=== PATIENT | female | born 1995 | race Caucasian/White ===

== ENCOUNTER 2021-06-12 13:04 | Emergency (ER) | payer MEDICAID, SELFPAY | END 2021-06-12 13:30 | disposition left against medical advice (07) | LOC: CHSED 13:10 | PROVIDERS: Emergency Provider Emergency Medicine | DX: Z04.9 Encounter for examination and observation for unspecified reason (principal); Z53.8 Procedure and treatment not carried out for other reasons | CPT/HCPCS: 99199 ==

== ENCOUNTER 2021-06-12 14:06 | Emergency (ER) | payer MEDICAID, SELFPAY ==
--- NOTE | 2021-06-12 14:13 | ED.SKABFB ---
HPI - Skin/Abscess/Foreign Bdy General Chief complaint: Skin/Abscess/Foreign Body Stated complaint: SWOLLEN AREA S/P SHOT Time Seen by Provider: 06/12/21 14:13 Source: patient and RN notes reviewed History of Present Illness HPI narrative: Patient is a 26-year-old female who presents the urgent care with complaints of swelling to the injection site of the left buttocks. Patient states that her sister gave her her Depo shot approximately 2 weeks ago and it has begun to swell and cause her a lot of pain. Patient states she followed up with her DOOR CLAMPER who stated she needed to speak to her primary care. Patient states that her sister has been giving her her injections for some time and she has never had any issues. Patient has used warm compress and taken Tylenol for the pain without any relief. Patient's primary care doctor told her to go to the urgent care for evaluation . Patient denies of any fevers, chills, nausea, vomiting. No other acute complaints. No distress noted. Patient plan of care. Some parts of this dictation were generated by voice recognition software and may contain typographical and/or grammatical inaccuracies. Related Data Home Medications Medication Instructions Recorded Confirmed zonisamide PO 06/12/21 Allergies Allergy/AdvReac Type Severity Reaction Status Date / Time No Known Allergies Allergy Mild Verified 12/15/10 22:37 Review of Systems Review of Systems: CONSTITUTIONAL: Denies fever, chills, or sweats. EYES: Denies visual changes, redness, or discharge. ENT: Denies rhinorrhea, congestion, sore throat, or otalgia. CARDIOVASCULAR: Denies chest pain, palpitations, or edema. RESPIRATORY: Denies cough or dyspnea. GASTROINTESTINAL: Denies abdominal pain, nausea, vomiting, or diarrhea. GENITOURINARY: Denies dysuria or hematuria. SKIN: Reports of swelling and pain to the left buttocks from a Depo injection MUSCULOSKELETAL: Denies back pain, joint pain, or myalgia. NEUROLOGIC: Denies headache, numbness, or weakness. All other systems reviewed are negative, except as documented in HPI. PMFSH Comments At the time of my signature, I reviewed and agree with the nursing past medical, surgical, social, and family history. There is no relevant family history pertinent to the patient complaint. Exam Narrative: GENERAL: This is a well-nourished, well-developed patient, in no apparent distress. HEAD: normocephalic, atraumatic. EYES: PERRL. Sclera clear/white. Vision is grossly intact. EARS: External ears normal NOSE: External nose normal with no obvious nasal discharge, nares without redness, no rhinorrhea. THROAT: Mucous membranes moist NECK: Neck supple CARDIOVASCULAR: Regular rate and rhythm without murmurs, gallops, or rubs. RESPIRATORY: Clear to auscultation. Breath sounds equal bilaterally. No wheezes, rales, or rhonchi. GASTROINTESTINAL: Abdomen soft, non-tender, nondistended. Bowel sounds are active. No hepato-splenomegaly, or palpable masses. No guarding. SKIN: 4 x 4 centimeter firm deep, tender, nonerythemic area to the left buttocks from injection. warm, intact with no suspicious lesions or rash, good texture and turgor. NEURO: awake, alert, and oriented to person, place and time. There were no obvious focal neurologic abnormalities. EXTREMITIES: No clubbing, cyanosis, or edema. Course Vital Signs Vital signs: Vital Signs Temperature 98.3 F 06/12/21 14:15 Pulse Rate 101 H 06/12/21 14:15 Respiratory Rate 16 06/12/21 14:15 Blood Pressure 124/81 06/12/21 14:15 Pulse Oximetry 100 06/12/21 14:15 Temperature 98.3 F 06/12/21 14:15 Pulse Rate 101 H 06/12/21 14:15 Respiratory Rate 16 06/12/21 14:15 Blood Pressure 124/81 06/12/21 14:15 Pulse Oximetry 100 06/12/21 14:15 Reviewed MDM - Skin/Abscess/Foreign Bdy MDM Narrative Medical decision making narrative: Advised the patient to continue warm compress, Tylenol, ibuprofen as needed for pain and comfort. May also u
[2021-06-12 14:15] VITALS: BP 124/81; PULSE 101; RESP 16; TEMP 36.8; O2SAT 100
== END 2021-06-12 14:40 | disposition home or self-care (01) ==
PROVIDERS: Emergency Provider Nurse Practitioner Family
DX: R22.9 Localized swelling, mass and lump, unspecified (principal); T50.905A Adverse effect of unspecified drugs, medicaments and biological substances, initial encounter
CPT/HCPCS: 99203; G0463

== ENCOUNTER 2022-06-13 12:06 | Emergency (ER) | payer MEDICAID, SELFPAY ==
[2022-06-13] VITALS (13 sets, daily range): BP systolic 92–126; BP diastolic 61–92; PULSE 65–106; RESP 15–21; TEMP 37.5; O2SAT 97–99
--- NOTE | ~2022-06-13 | CT_ITS ---
EXAMINATION: CT brain wo con DATE: 06/13/2022 13:06 INDICATION: 5 to 6 mm long seizure today TECHNIQUE: Computed tomography (CT) of the head was performed without intravenous contrast. The mA wa s adjusted according to patient size. Iterative reconstruction technique was employed. Exam dose: 52 9.67 mGy-cm total exam DLP. COMPARISON: November 11, 2013 MRI brain/brainstem 04/20/2011 CT brain FINDINGS: The cerebellar tonsils extend through the foramen magnum suggesting possible Arnold-Chiari 1 malformation. No intracranial mass lesion or hemorrhage or cerebrovascular accident. Normal hayes-wh ite matter differentiation. Normal ventricular size. No subdural or epidural hematoma. No fracture or bone destruction of the cranial vault. Included mastoid air cells and paranasal sinuse s are clear. IMPRESSION: Cerebellar tonsils extend to the foramen magnum suggesting Arnold-Chiari 1 malformation No acute intracranial finding Reviewed, dictated and finalized at [facility]. Reviewed, dictated and finalized at [facility]. ROOM ATTENDANT IMPRESSION: Cerebellar tonsils extend to the foramen magnum suggesting Arnold- Chiari 1 malformation No acute intracranial finding
--- NOTE | ~2022-06-13 | XR_ITS ---
XR chest 1V portable DATE: 06/13/2022 12:53 INDICATION: Shortness of breath TECHNIQUE: Portable AP chest on 06/13/2022 at 1300 hours COMPARISON: None FINDINGS: Bilateral hyperinflation. No pulmonary infiltrate or consolidation, pleural effusion or pul monary vascular congestion or pneumothorax. Normal heart size. No hilar or mediastinal enlargement. IMPRESSION: Bilateral hyperinflation; otherwise no active cardiopulmonary disease Reviewed, dictated and finalized at location [facility]. E ACTOR IMPRESSION: Bilateral hyperinflation; otherwise no active cardiopulmonary disea se
--- NOTE | 2022-06-13 12:31 | ECG_ITS ---
Measurements Intervals [place] Rate: 80 P: 76 ID: [id number] QRS: 78 QRSD: 79 T: 72 QT: 352 QTc: 408 Interpretive Statements SINUS RHYTHM WITH SINUS ARRHYTHMIA BASELINE ARTIFACT- AVR, AVL, AVF NORMAL ECG NO PREVIOUS ECG AVAILABLE FOR COMPARISON Electronically Signed On 06-13-2022 13:06:36 TOBACCO WETTER by Mark Marie D.O.
[2022-06-13 12:43] LABS: Basophils Absolute Auto 0.02 K/mm3 (0.00-0.10); Basophils Percent Auto 0.4 % (0.0-1.0); Eosinophils Absolute Auto 0.01 K/mm3 (0.02-0.50); Eosinophils Percent Auto 0.2 % (1.0-6.0); Hemoglobin 13.7 g/dL (12.0-15.0); Immature Granulocyte Absolute 0.02 K/mm3 (0.00-0.00); Immature Granulocyte Percent A 0.4 % (0.0-0.0); Lymphocytes Absolute Auto 1.05 K/mm3 (1.10-4.50); Mean Corpuscular HGB Conc 33.4 g/dL (32.0-36.0); Mean Corpuscular Hemoglobin 29.4 pg (27.0-31.0); Mean Platelet Volume 10.6 fl (9.2-11.8); Monocytes Absolute Auto 0.51 K/mm3 (0.10-0.90); Monocytes Percent Auto 10.7 % (2.0-11.0); Neutrophils Absolute Auto 3.2 K/mm3 (1.7-7.2); Neutrophils Percent Auto 66.3 % (50.0-70.0); Platelet Count Result 191 K/mm3 (150-420); Red Blood Count 4.66 M/mm3 (4.20-5.40); Red Cell Distribution Width 11.7 % (11.6-14.4); White Blood Count 4.8 K/mm3 (4.8-10.8)
[2022-06-13 12:51] LABS: Appearance Urine Clear (Clear); Bilirubin Urine Negative (Negative); Blood Urine 1+ (Negative); Glucose Urine UA Negative (Negative); Ketones Urine Negative (Negative); Leukocyte Esterase Ur Trace (Negative); Nitrate Urine Negative (Negative); Protein Urine Negative (Negative); Specific Grav Ur 1.015 (1.010-1.020); Urobilinogen Urine 0.2 mg/dL (0.2-1.0)
[2022-06-13] MEDS: PHENYTOIN SODIUM INJ (*BKC) 1,000 MG in SODIUM CHLORIDE 0.9% IV 100 ML 360 MG IVPB (12:54)
[2022-06-13 12:58] LABS: Amphetamine Screen Urine Negative (Negative); Barbiturate Screen Urine Negative (Negative); Benzodiazepines Screen Urine Negative (Negative); Cannabinoid Screen Urine Negative (Negative); Cocaine Screen Urine Negative (Negative); Methadone Screen Urine Negative (Negative); Opiate Screen Urine Negative (Negative); Phencyclidine Screen Urine Negative (Negative)
[2022-06-13 12:59] LABS: Add Urine Microscopic? YES; Bacteria Urine Trace /hpf; Color Urine Light Yellow (Yellow); RBC Urine 0-2 /hpf (0-2); Squamous Epithelial Cell Urine Few /hpf (Few); WBC Urine 0-3 /hpf (0-3)
[2022-06-13 13:01] LABS: Alanine Aminotransferase 15 U/L (14-59); Albumin Level 3.5 g/dL (3.4-5.0); Alkaline Phosphatase 71 U/L (46-116); Anion Gap 6 mmol/L (8-16); Aspartate Amino Transferase 14 U/L (15-37); Bilirubin,Total 0.4 mg/dL (0.00-1.00); Blood Urea Nitrogen 7 mg/dL (7-18); Calcium 8.5 mg/dL (8.5-10.1); Carbon Dioxide 27 mmol/L (21-32); Chloride 108 mmol/L (98-108); Estimated Glomerular Filt Rate > 60; Glucose 97 mg/dL (70-99); Osmolality Calculated 290 mOsm/kg (285-295); Potassium 3.5 mmol/L (3.5-5.1); Sodium 141 mmol/L (136-145); Total Protein 6.8 g/dL (6.4-8.2)
[2022-06-13 13:03] LABS: Ethanol < 3 mg/dL (0-6); SPREG INTERNAL CONTROL Positive; Serum Qual hCG Negative
[2022-06-13] MEDS: PHENYTOIN 50 MG CHEW 700 MG PO (13:40)
--- NOTE | 2022-06-13 13:55 | ED.SEIZURE ---
HPI - Seizure General Chief Complaint: Seizure Stated Complaint: Ambulance Time Seen by Provider: 06/13/22 12:09 Source: patient, family, EMS and RN notes reviewed Mode of arrival: ambulatory Limitations: no limitations History of Present Illness complaint: seizure Onset (ago): hour(s) (1) Description of Episode: tonic-clonic movement and post-event confusion Duration of episode: 5 -: minutes(s) Witnessed: Yes - by Other Trauma: No Seizure History: Yes Place: home Possible Precipitating Event: none Associated symptoms: denies other symptoms Treatments prior to arrival: none Related Data Home Medications Medication Instructions Recorded Confirmed zonisamide 100 mg capsule 300 mg PO HS 06/13/22 06/13/22 Allergies Allergy/AdvReac Type Severity Reaction Status Date / Time levetiracetam [From Kera] Allergy Other Verified 06/13/22 12:15 Review of Systems Review of Systems: All systems reviewed & are unremarkable except as noted in HPI and below Constitutional: Constitutional: Reports no additional constitutional complaints Eyes: Eyes: Reports no additional eye complaints ENT: Reports system reviewed and no additional complaints, except as documented Cardiovascular: Cardiovascular: Reports no additional cardiovascular complaints Respiratory: Respiratory: Reports no additional respiratory complaints Gastrointestinal: Gastrointestinal: Reports no additional gastrointestinal complaints Genitourinary: Genitourinary: Reports no additional female genitourinary complaints Musculoskeletal: Musculoskeletal: Reports no additional musculoskeletal complaints Integumentary/Breasts: Skin/Breast: Reports system reviewed and no additional complaints, except as docu Neurologic: Reports system reviewed and no additional complaints, except as documented Comments: seizure epsode. Psychiatric: Psychiatric: Reports no additional psychiatric complaints Endocrine: Endocrine: Reports no additional endocrine complaints Hematologic/Lymphatic: Hematologic/Lymphatic: Reports no additional hematologic/lymphatic complaints Allergic/Immunologic: Allergic/Immunologic: Reports no additional allergic/immunologic complaints PMFSH Past Medical History Medical History Seizure Exam Const: General: healthy appearing, no acute distress and well nourished Nutritional Appearance: well nourished Orientation/consciousness: patient oriented x3 Limitations: no limitations HENMT: Head: normal to inspection Ears: external ears normal, TM's normal bilaterally and EAC's normal Face/Nose/Sinus: Normal external nose present, Normal nares present, normal facial exam and sinuses nontender Face and sinus: normal facial exam and sinuses nontender Mouth: Yes Normal oral and palatal mucosa present and Yes moist mucous membranes Teeth and gingiva: dentition normal Throat: posterior oropharynx normal Eyes: Conjunctivae: conjunctivae normal Pupils: Equal, round and reactive pupils present EOM: EOMs intact bilaterally Neck: Neck: normal visual inspection, no lymphadenopathy and no meningeal signs Chest: Chest palpation & inspection: normal inspection of the chest Resp: Effort & Inspection: normal respiratory effort Auscultation: clear to auscultation bilaterally Cardio: Rate: regular rate Rhythm: regular rhythm GI: GI Palp: Yes Soft to palpation and No Tenderness to palpation present (GI) Auscultation: normal bowel sounds : General: Yes bladder normal to palpation and Yes no CVA tenderness Bimanual exam- vagina & uterus: bladder normal to palpation Back/Spine/Pelvis: Back: no CVA tenderness Skin: General skin exam: normal color Rashes: no rashes Wounds: no wounds Neuro: General: patient oriented x3, moves all extremities, no meningeal signs, no focal motor deficits and CN's II-XI intact bilaterally Cranial nerves: Yes Equal, round and reactive pupils present and Yes Nystag
[2022-06-13] MEDS: PHENYTOIN 50 MG CHEW 300 MG PO (15:12)
== END 2022-06-13 15:29 | disposition home or self-care (01) ==
PROVIDERS: Emergency Provider Emergency Medicine
DX: R56.9 Unspecified convulsions (principal)
CPT/HCPCS: 36415; 70450; 71045; 80053; 80307; 81001; 84703; 85025; 93005; 96374; 99284; A9270; J1165

== ENCOUNTER 2022-08-16 16:52 | Emergency (ER) | payer MEDICAID, SELFPAY ==
--- NOTE | ~2022-08-16 | CT_ITS ---
EXAMINATION: CT brain wo con DATE: 08/16/2022 17:45 INDICATION: seizure, SARMIENTO . TECHNIQUE: Computed tomography (CT) of the head was performed without intravenous contrast. The mA wa s adjusted according to patient size. Iterative reconstruction technique was employed. The dose-lengt h product was 681.00 mGy-cm. COMPARISON: 06/13/2022. FINDINGS: No acute intracranial hemorrhage or extra-axial fluid collection. No hydrocephalus, mass, or herniation. Stable possible Arnold-Chiari 1 malformation. No acute ischemic infarct. Unremarkable dural venous sinus attenuation. No acute osseous abnormality. Right maxillary retention cyst or polyp left maxillary mucosal thickening. The remaining aerated spac es are clear. IMPRESSION: No acute intracranial process. Reviewed, dictated and finalized at location [facility]. [employer]ICIAN SUPER[employer]
[2022-08-16 16:55] VITALS: BP 122/85; PULSE 74; RESP 16; TEMP 37.3; O2SAT 100
--- NOTE | 2022-08-16 17:11 | ECG_ITS ---
Measurements Intervals [place] Rate: 66 P: 74 [place]: 191 QRS: 62 QRSD: 79 T: 55 QT: 372 QTc: 392 Interpretive Statements SINUS RHYTHM RSR' IN V1 OR V2, PROBABLY NORMAL VARIANT LOW QRS VOLTAGE IN PRECORDIAL LEADS BORDERLINE ECG COMPARED TO ECG 06/13/2022 12:53:16 NO SIGNIFICANT CHANGES Electronically Signed On 08-16-2022 17:34:22 CLINICAL ADMINISTRATOR by Mark Marie D.O.
[2022-08-16 17:12] VITALS: BP 122/85; PULSE 77; RESP 16; TEMP 37.3; O2SAT 100
[2022-08-16] MEDS: SODIUM CHLORIDE 0.9% IV 500 ML 999 ML IV CONT (17:20)
--- NOTE | 2022-08-16 18:06 | ED.SEIZURE ---
HPI - Seizure General Chief Complaint: Seizure Stated Complaint: amb Time Seen by Provider: 08/16/22 16:57 Source: patient Mode of arrival: EMS Limitations: no limitations History of Present Illness HPI Narrative: This is a 27-year-old female with a history of seizures and apparently had a tonic-clonic seizure witnessed lasting [id number] with no tongue biting no bowel or bladder dysfunction, patient currently not postictal no headache no nausea vomiting does have some muscle aches. Currently no fever chills no chest pain no shortness of breath no abdominal pain no flank pain no dysuria. Patient has this history of seizures but was seeing a neurologist and unable to afford the medication and discontinued her medication has currently no insurance and has not had a recent follow-up. complaint: seizure Onset (ago): minute(s) Duration of episode: 1 -: minutes(s) Witnessed: Yes - by Bystander Trauma: No Seizure History: Yes Place: outdoors Possible Precipitating Event: none Associated symptoms: denies other symptoms Treatments prior to arrival: none Related Data Allergies Allergy/AdvReac Type Severity Reaction Status Date / Time levetiracetam [From Keppra] Allergy Other Verified 06/13/22 12:15 lorazepam [From Ativan] Allergy Chest Pain Verified 08/16/22 17:17 Review of Systems Review of Systems: All systems reviewed & are unremarkable except as noted in HPI and below PMFSH Past Medical History Medical History Seizure Exam Const: General: healthy appearing Nutritional Appearance: well nourished Orientation/consciousness: patient oriented x3 Limitations: no limitations HENMT: Head: normal to inspection Ears: external ears normal Face/Nose/Sinus: Normal external nose present Face and sinus: normal facial exam Mouth: Yes Normal oral and palatal mucosa present Throat: posterior oropharynx normal Eyes: Conjunctivae: conjunctivae normal EOM: EOMs intact bilaterally Direct Ophthalmoscopy: no photophobia Neck: Neck: normal visual inspection, no lymphadenopathy and no meningeal signs Chest: Chest palpation & inspection: normal inspection of the chest and abnormal inspection of the chest Resp: Effort & Inspection: normal respiratory effort Auscultation: clear to auscultation bilaterally Cardio: Rate: regular rate Rhythm: regular rhythm GI: GI Palp: Yes Soft to palpation Auscultation: normal bowel sounds : General: Yes bladder normal to palpation Urinary Catheter: Urinary Catheter: patent and draining Back/Spine/Pelvis: Back: no CVA tenderness Skin: General skin exam: normal color Rashes: no rashes Wounds: no wounds Neuro: General: patient oriented x3, moves all extremities, no meningeal signs and no focal motor deficits Cranial nerves: Yes Nystagmus not present Extrem: General: normal to inspection and no clubbing, cyanosis or edema Psych: Appearance: grossly normal and well kempt Mental Status: mental status grossly normal Course Course Emergency Course: CT scan reviewed with patient and no acute findings patient received IV fluids labs and EKG were reviewed with patient. Currently no seizure activity. Vital Signs Vital signs: Vital Signs Temperature 37.3 C 08/16/22 16:55 Pulse Rate 74 08/16/22 16:55 Respiratory Rate 16 08/16/22 16:55 Blood Pressure 122/85 08/16/22 16:55 Pulse Oximetry 100 08/16/22 16:55 Oxygen Delivery Room Air 08/16/22 16:55 Temperature 37.3 C 08/16/22 17:12 Pulse Rate 77 08/16/22 17:12 Respiratory Rate 16 08/16/22 17:12 Blood Pressure 122/85 08/16/22 17:12 Pulse Oximetry 100 08/16/22 17:12 Oxygen Delivery Room Air 08/16/22 17:12 Critical Care Time Critical Care Time Critical Care Time: No Discharge Plan Discharge Clinical Impression: Seizure, Acute hypokalemia Patient Disposition: Home, Self-Care Condition: Stable Instructions: Anti
[2022-08-16 18:11] LABS: Basophils Absolute Auto 0.02 K/mm3 (0.00-0.10); Basophils Percent Auto 0.4 % (0.0-1.0); Eosinophils Absolute Auto 0.03 K/mm3 (0.02-0.50); Eosinophils Percent Auto 0.7 % (1.0-6.0); Hematocrit 39.3 % (35.0-49.0); Immature Granulocyte Absolute 0.02 K/mm3 (0.00-0.00); Immature Granulocyte Percent A 0.4 % (0.0-0.0); Lymphocytes Absolute Auto 1.49 K/mm3 (1.10-4.50); Lymphocytes Percent Auto 32.7 % (18.0-42.0); Mean Corpuscular HGB Conc 33.1 g/dL (32.0-36.0); Mean Corpuscular Hemoglobin 28.6 pg (27.0-31.0); Mean Corpuscular Volume 86.6 fL (78.0-102.0); Monocytes Absolute Auto 0.34 K/mm3 (0.10-0.90); Monocytes Percent Auto 7.5 % (2.0-11.0); Neutrophils Absolute Auto 2.7 K/mm3 (1.7-7.2); Neutrophils Percent Auto 58.3 % (50.0-70.0); Platelet Count Result 186 K/mm3 (150-420); Red Blood Count 4.54 M/mm3 (4.20-5.40); Red Cell Distribution Width 12.4 % (11.6-14.4); White Blood Count 4.6 K/mm3 (4.8-10.8)
[2022-08-16 18:22] LABS: Add Urine Microscopic? YES; Appearance Urine Clear (Clear); Bilirubin Urine Negative (Negative); Blood Urine 1+ (Negative); Color Urine Light Yellow (Yellow); Glucose Urine UA Negative (Negative); Ketones Urine Negative (Negative); Leukocyte Esterase Ur Negative LEU/UL (Negative); Nitrate Urine Negative (Negative); Protein Urine Negative (Negative); Specific Grav Ur 1.015 (1.010-1.020)
[2022-08-16 18:25] LABS: Alanine Aminotransferase 15 U/L (14-59); Albumin Level 3.6 g/dL (3.4-5.0); Alkaline Phosphatase 81 U/L (46-116); Anion Gap 9 mmol/L (8-16); Aspartate Amino Transferase 12 U/L (15-37); Bilirubin,Total 0.5 mg/dL (0.00-1.00); Blood Urea Nitrogen 7 mg/dL (7-18); Carbon Dioxide 24 mmol/L (21-32); Chloride 107 mmol/L (98-108); Creatine Kinase 33 U/L (26-192); Estimated CRCL calculation 96 ml/min; Estimated Glomerular Filt Rate > 60; Glucose 83 mg/dL (70-99); Osmolality Calculated 287 mOsm/kg (285-295); Potassium 3.3 mmol/L (3.5-5.1); Sodium 140 mmol/L (136-145)
[2022-08-16 18:28] LABS: Amorphous Sediment Urine Few; Bacteria Urine Trace /hpf; Mucus Urine Heavy /lpf; RBC Urine 0-2 /hpf (0-2); Squamous Epithelial Cell Urine Many /hpf (Few)
[2022-08-16 18:36] LABS: Amphetamine Screen Urine Negative (Negative); Barbiturate Screen Urine Negative (Negative); Benzodiazepines Screen Urine Negative (Negative); Cannabinoid Screen Urine Negative (Negative); Cocaine Screen Urine Negative (Negative); Methadone Screen Urine Negative (Negative); Opiate Screen Urine Negative (Negative); Phencyclidine Screen Urine Negative (Negative)
[2022-08-16] MEDS: POTASSIUM BICARBONATE 25 MEQ TABEF 50 MEQ PO (18:40)
[2022-08-16 18:51] VITALS: BP 113/79; PULSE 73; RESP 16; TEMP 36.2; O2SAT 99
== END 2022-08-16 18:53 | disposition home or self-care (01) ==
PROVIDERS: Emergency Provider Emergency Medicine
DX: R56.9 Unspecified convulsions (principal); E87.6 Hypokalemia
CPT/HCPCS: 36415; 70450; 80053; 80307; 81001; 82550; 85025; 93005; 96360; 99284; A9270; J7040

== ENCOUNTER 2024-06-07 21:44 | Emergency (ER) | payer BC, SELFPAY ==
[2024-06-07 21:44] VITALS: BP 124/81; PULSE 92; RESP 18; TEMP 37; O2SAT 98
--- NOTE | 2024-06-07 21:45 | ECG_ITS ---
Test Date: 2024-06-07 22:11:44 Measurements Intervals [place] Rate: 81 P: 68 [place]: 232 QRS: 75 QRSD: 103 T: 76 QT: 364 QTc: 423 Interpretive Statements SINUS RHYTHM WITH FIRST DEGREE AV BLOCK INCOMPLETE RIGHT BUNDLE BRANCH BLOCK BASELINE ARTIFACT- I, II, III, AVR, AVL, AVF ABNORMAL ECG No previous ECG available for comparison Electronically Signed On 06-08-2024 06:32:23 SAMPLE STITCHER by Mark Marie D.O.
--- NOTE | 2024-06-07 21:52 | ED_ITS ---
HPI - Seizure General Chief Complaint: Seizure Stated Complaint: seizure Time Seen by Provider: 06/07/24 21:45 Source: patient Mode of arrival: ambulatory Limitations: no limitations History of Present Illness HPI Narrative: Patient is a 29-year-old female with significant past medical history that presents today for a seizure. Patient states she was at home with her kids and her kids said that she started having a seizure for about 20 seconds. She did have a postictal state and did not remember having the seizure. She has a history of seizures she says she has about 3 a for a month. She does see a neur ologist and she has a MRI scheduled for this . She does take seizure medications currently and they have been changed around the dosages and adding an different medications as well. MD complaint: seizure Onset (ago): minute(s) Description of Episode: tonic-clonic movement Duration of episode: 20 -: second(s) Witnessed: Yes - by Bystander Seizure History: Yes Place: home Possible Precipitating Event: none Associated symptoms: denies other symptoms Treatments prior to arrival: none Are you currently using a commercial designer's license ([employer]) as part of your employment, either self-employed or otherwise?: No Related Data Allergies Allergy/AdvReac Type Severity Reaction Status Date / Time levetiracetam [From Keppra] Allergy Other Verified 06/13/22 12:15 lorazepam [From Ativan] Allergy Chest Pain Verified 08/16/22 17:17 Review of Systems Review of Systems: All systems reviewed & are unremarkable except as noted in HPI and below Constitutional: Constitutional: Reports as per HPI Eyes: Eyes: Reports no additional eye complaints ENT: Reports system reviewed and no additional complaints, except as documented Cardiovascular: Cardiovascular: Reports no additional cardiovascular complaints Respiratory: Respiratory: Reports no additional respiratory complaints Gastrointestinal: Gastrointestinal: Reports no additional gastrointestinal complaints Genitourinary: Genitourinary: Reports no additional female genitourinary complaints Musculoskeletal: Musculoskeletal: Reports no additional musculoskeletal complaints Integumentary/Breasts: Skin/Breast: Reports system reviewed and no additional complaints, except as docu Neurologic: Reports system reviewed and no additional complaints, except as documented Psychiatric: Psychiatric: Reports no additional psychiatric complaints Endocrine: Endocrine: Reports no additional endocrine complaints Hematologic/Lymphatic: Hematologic/Lymphatic: Reports no additional hematologic/lymphatic complaints Allergic/Immunologic: Allergic/Immunologic: Reports no additional allergic/immunologic complaints [facility] Past Medical History Medical History Seizure Exam Const: General: healthy appearing, no acute distress and alert HENMT: Head: normal to inspection Ears: external ears normal Face/Nose/Sinus: Normal external nose present Eyes: Conjunctivae: conjunctivae normal Pupils: Equal, round and reactive pupils present Neck: Neck: normal visual inspection Chest: Chest palpation & inspection: normal inspection of the chest Resp: Effort & Inspection: normal respiratory effort Auscultation: clear to auscultation bilaterally Cardio: Rate: regular rate Rhythm: regular rhythm GI: GI Palp: Yes Soft to palpation Back/Spine/Pelvis: Back: no CVA tenderness Skin: General skin exam: normal color Rashes: no rashes Wounds: no wounds Neuro: General: patient oriented x3, moves all extremities and no meningeal signs Extrem: General: normal to inspection Psych: Appearance: grossly normal and well kempt Course Vital Signs Vital signs: Vital Signs Temperature 98.6 F 06/07/24 21:44 Pulse Rate 92 06/07/24 21:44 Respiratory Rate 18 06/07/24 21:44 Blood Pressure 124/81 06/07/24 21:44 Pulse Oximetry 98 06/07/24 21:44 Oxygen Delivery Room Air 06/07/24 21:44 Temperature 98.6 F 06/07/24 21:44 Pulse Rate 92 06/07/24 21:44 Respiratory Rate 18 06/07/24 21:44 Blood Pressure 124/81 06/07/24 21:44 Pulse Oximetry 98 06/07/24 21:44 Oxygen Delivery Room Air 06/07/24 21:44 MDM - Seizure MDM Narrative Medical decision making narrative: Patient has a history of multiple seizures she says she has about 3 or 4 months. She is on seizure medication for this but still is having seizures. This time it lasted around 20 seconds. She did have a postictal state. Her children called 911 and when she came in she was perfectly coherent alert oriented x3. She did not have any slow mentation. She has old conversation. I gave her 1 mg IV Ativan to ensure she has not have another the seizure. Will do full blood panel as well. As long as her blood workup are normal and she is seizure-free will watch her and then she can be discharged home safely. She has a MRI scheduled instructed her to keep his MRI and her follow-up with her neurologist. Differential Diagnosis Differential diagnosis: Likely epileptic seizure Medical Records Attestation: I reviewed the patient's medical records. Lab Data Attestation: I reviewed the patient's lab results. 06/07/24 21:45 06/07/24 21:45 Labs: Lab Results 06/07/24 Range/Units 21:45 WBC 5.2 (4.8-10.8) K/mm3 RBC 4.58 (4.20-5.40) M/mm3 Hgb 12.6 (12.0-15.0) g/dL Hct 38.1 (35.0-49.0) % MCV 83.2 (78.0-102.0) fL MCH 27.5 (27.0-31.0) pg MCHC 33.1 (32-36) g/dL RDW 13.6 (11.6-14.4) % Plt Count 229 (150-420) K/mm3 MPV 10.8 (9.2-11.8) fl Immature Gran % (Auto) 0.2 H (0.0-0.0) % Neut % (Auto) 58.7 (50.0-70.0) % Lymph % (Auto) 29.3 (18.0-42.0) % [place] % (Auto) 10.0 (2.0-11.0) % Eos % (Auto) 1.2 (1.0-6.0) % Baso % (Auto) 0.6 (0.0-1.0) % Lymph # (Auto) 1.52 (1.10-4.50) K/mm3 [place] # (Auto) 0.52 (0.10-0.90) K/mm3 Eos # (Auto) 0.06 (0.02-0.50) K/mm3 Baso # (Auto) 0.03 (0.00-0.10) K/mm3 Abs Immat Gran (auto) 0.01 H (0.00-0.00) K/mm3 Absolute Neuts (auto) 3.04 (1.70-7.20) K/mm3 Absolute Nucleated RBC 0.00 (0.00-0.00) K/mm3 Nucleated RBC % 0.0 (0-0.0) % Sodium 140 (136-145) mmol/L Potassium 3.8 (3.5-5.1) mmol/L Chloride 104 (98-108) mmol/L Carbon Dioxide 25 (21-32) mmol/L Anion Gap 11 (4-12) mmol/L BUN 10 (7-18) mg/dL Creatinine 0.74 (0.55-1.02) mg/dL Estim Creat Clear Calc 79 ml/min Estimated GFR > 60 (59 - ) Glucose 106 H (70-99) mg/dL Calculated Osmolality 289 (285-295) mOsm/kg Calcium 9.2 (8.5-10.1) mg/dL Total Bilirubin 0.3 (0.00-1.00) mg/dL AST 17 (15-37) U/L ALT 22 (14-59) U/L Alkaline Phosphatase 57 (46-116) U/L Total Protein 7.0 (6.4-8.2) g/dL Albumin 3.5 (3.4-5.0) g/dL Discharge Plan Discharge Clinical Impression: Seizure Patient Disposition: Home, Self-Care Condition: Stable Instructions: Epilepsy (ED) Prescriptions: No Action phenytoin sodium extended 100 mg capsule 100 mg PO TID Qty: 90 0RF potassium chloride 20 mEq tablet extended release 20 meq PO BID 3 Days Qty: 6 0RF Follow-up/Referrals: UNKNOWN,DOCTOR [Primary Care Provider] - Time of Disposition: 22:40
[2024-06-07 21:55] LABS: Basophils Absolute Auto 0.03 K/mm3 (0.00-0.10); Basophils Percent Auto 0.6 % (0.0-1.0); Eosinophils Absolute Auto 0.06 K/mm3 (0.02-0.50); Eosinophils Percent Auto 1.2 % (1.0-6.0); Hematocrit 38.1 % (35.0-49.0); Hemoglobin 12.6 g/dL (12.0-15.0); Immature Granulocyte Absolute 0.01 K/mm3 (0.00-0.00); Immature Granulocyte Percent A 0.2 % (0.0-0.0); Lymphocytes Absolute Auto 1.52 K/mm3 (1.10-4.50); Lymphocytes Percent Auto 29.3 % (18.0-42.0); Mean Corpuscular HGB Conc 33.1 g/dL (32-36); Mean Corpuscular Hemoglobin 27.5 pg (27.0-31.0); Mean Corpuscular Volume 83.2 fL (78.0-102.0); Mean Platelet Volume 10.8 fl (9.2-11.8); Monocytes Absolute Auto 0.52 K/mm3 (0.10-0.90); Neutrophils Absolute Auto 3.04 K/mm3 (1.70-7.20); Neutrophils Percent Auto 58.7 % (50.0-70.0); Platelet Count Result 229 K/mm3 (150-420); Red Blood Count 4.58 M/mm3 (4.20-5.40); Red Cell Distribution Width 13.6 % (11.6-14.4); White Blood Count 5.2 K/mm3 (4.8-10.8)
[2024-06-07] MEDS: SODIUM CHLORIDE 0.9% IV 1,000 ML 999 ML IV CONT (21:55)
[2024-06-07] MEDS: LORazepam INJ (*CRX) 2 MG/ML VIAL 1 MG IV PUSH (21:56)
[2024-06-07 22:00] VITALS: BP 124/81; PULSE 85; RESP 12; O2SAT 94
--- NOTE | 2024-06-07 22:02 | PC.NURSE ---
EKG IN PROGRESS BY VENANCIO DOYLE
[2024-06-07 22:13] LABS: Alanine Aminotransferase 22 U/L (14-59); Albumin Level 3.5 g/dL (3.4-5.0); Alkaline Phosphatase 57 U/L (46-116); Anion Gap 11 mmol/L (4-12); Aspartate Amino Transferase 17 U/L (15-37); Bilirubin,Total 0.3 mg/dL (0.00-1.00); Blood Urea Nitrogen 10 mg/dL (7-18); Calcium 9.2 mg/dL (8.5-10.1); Carbon Dioxide 25 mmol/L (21-32); Chloride 104 mmol/L (98-108); Estimated CRCL calculation 79 ml/min; Estimated Glomerular Filt Rate > 60; Glucose 106 mg/dL (70-99); Osmolality Calculated 289 mOsm/kg (285-295); Potassium 3.8 mmol/L (3.5-5.1); Sodium 140 mmol/L (136-145)
[2024-06-07 22:15] VITALS: BP 118/67; PULSE 84; RESP 11; O2SAT 99
--- NOTE | 2024-06-07 22:17 | PC.NURSE ---
RESTING ON STRETCHER. WARM BLANKET GIVEN. CURTAINS LEFT OPEN SO THIS RN COULD MONITOR PATIENT. CALL LIGHT IN REACH
--- NOTE | 2024-06-07 22:30 | PC.NURSE ---
PATIENT IS A&O X 3. TALKING ON THE PHONE. CALL LIGHT IN REACH. CURTAINS LEFT OPEN SO PATIENT COULD BE MONITORED
[2024-06-07 22:31] VITALS: BP 95/75; PULSE 83; RESP 14; O2SAT 99
[2024-06-07 22:45] VITALS: BP 114/70; PULSE 85; RESP 17; O2SAT 98
--- NOTE | 2024-06-07 23:10 | PC.NURSE ---
PATIENT HAS CALLED SIGNIFICANT OTHER. WAITING ON HIS ARRIVAL BEFORE REMOVING IV LINE. CALL LIGHT IN REACH
--- NOTE | 2024-06-07 23:44 | PC.NURSE ---
PATIENT REPORTS THAT HER RIDE IS COMING FROM [place]. LIGHTS TURNED OFF FOR PATIENT. SHE WILL REST UNTIL RIDE ARRIVES.
== END 2024-06-08 00:25 | disposition home or self-care (01) ==
PROVIDERS: Emergency Provider Family Medicine
DX: R56.9 Unspecified convulsions (principal)
CPT/HCPCS: 36415; 80053; 85025; 93005; 96361; 96374; 99284; J2060; J7030

== ENCOUNTER 2024-12-11 15:18 | Emergency (ER) | payer BC, SELFPAY ==
--- NOTE | ~2024-12-11 | XR_ITS ---
CHEST RADIOGRAPH, PA AND LATERAL CLINICAL HISTORY: SEIZURE . COMPARISON: 06/13/2022 TECHNIQUE: PA and lateral views of the chest. FINDINGS The cardiomediastinal silhouette is unremarkable. The lungs are clear. Visualized osseous structures and soft tissues are unremarkable. IMPRESSION: No focal infiltrate or effusion. Reviewed, dictated and finalized at location A.
[2024-12-11 15:22] VITALS: BP 108/68; PULSE 104; RESP 16; TEMP 36.7; O2SAT 100
--- OUTSIDE RECORDS SUMMARY | 2024-12-11 15:22 | XMS_ITS | Clinical Summary ---
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 1 spray (5 mg) into 1 nostril; if no response, a second dose of 1 spray (5 mg) into the opposite nostril may be given 10 minutes after the initial dose; do not give a second dose if the patient has trouble breathing or if there is excessive sedation that is uncharacteristic of the patient during a seizure cluster episode; MAX, 2 doses/single episode; do not treat more than 1 episode every 3 days or more than 5 episodes/month 10 Each 5 04/16/20 20 Active Zonisamide (ZONEGRAN) 100 mg capsule Take 3 Capsules (300 mg) by mouth daily at bedtime. 90 Capsule 3 03/07/20 21 Active medroxyPROGESTE Levar (DEPO-PROVERA) 150 mg/mL Suspension Inject 1 mL (150 mg) by intramuscular injection every 90 days. 1 mL 2 12/20/19 22 Active Active Problems Problem Noted Date Diagnosed Date Abscess of buttock, left 06/24/2021 LGSIL on Pap smear of cervix 08/10/2019 Overview (08/10/2019): Colposcopy 07/2019 - biopsies benign Needs rpt pap smear w/ co-testing in 2020. Breast mass in female 08/10/2019 Overview (08/10/2019): Possible fibroadenoma - needs rpt breast US in 3 months (ordered) Seizures 06/21/2019 Tobacco use 06/21/2019 Immunizations Immunization Administration Dates Next Due INFLUENZA VACCINE QUADRIVALENT 6 MOS UP PF IM Family History Medical History Relation Name Comments Healthy Daughter 1 Healthy Daughter 2 Throat Cancer Father Healthy Half-Sister 1 Healthy Half-Sister 2 Diabetes Maternal Grandfather Other Maternal Grandmother C-diff Other Mother mva Cancer Paternal Grandfather Healthy Paternal Grandmother Healthy Sister Healthy Son 1 Healthy Son 2 Breast Cancer Neg Hx Colon Cancer Neg Hx Ovarian Cancer Neg Hx Relation Name Status Comments Daughter 1 Alive Daughter 2 Alive Father Half-Sister 1 Alive Half-Sister 2 Alive Maternal Grandfather Maternal Grandmother Mother Paternal Grandfather Paternal Grandmother Alive Sister Alive Son 1 Alive Son 2 Alive Social History Tobacco Use Types Packs/Day Years Used Date Smoking Tobacco: Every Day Cigarettes 1 12 Smokeless Tobacco: Never Tobacco Cessation:Ready to Q uit: No; Counseling Given: Yes Alcohol Use Standard Drinks/Week Comments Not Currently 0 (1 standard drink = 0.6 oz pur e alcohol) Comments No Sex and Gender Information Value Date Recorded Sex Assigned at Not on file Legal Sex Female 10:55 AM CDT Gender Identity Not on file Sexual Orientation Not on file Last Filed Vital Signs Vital Sign Reading Time Taken Comments Blood Pressure 114/86 02/13/2022 8:56 AM CDT Pulse 106 02/13/2022 8:56 AM CDT Temperature 36 C (96.8 F) 02/13/2022 8:56 AM CDT Respiratory Rate 16 02/13/2022 8:56 AM CDT Oxygen Saturation 94% 02/13/2022 8:56 AM CDT Inhaled Oxygen Concentration - - Weight 60.8 kg (134 lb) 02/13/2022 8:56 AM CDT Height 172.7 cm (5' 8 ) 02/13/2022 8:56 AM CDT Body Mass Index 20.37 02/13/2022 8:56 AM CDT Plan of Treatment Health Maintenance Due Date Last Done Comments DTAP/TDAP/TD VACCINES (1 - Tdap) 2012 HEPATITIS B VACCINES (1 of 3 - 19+ 3-dose series) 2012 PAP SMEAR 10/10/2023 10/09/2020, 10/09/2020, 06/21/2019 INFLUENZA VACCINE (#1) 2024 , 07/01/2017 CERVICAL CANCER SCREENING 10/09/2025 HPV/Cotest (21-29) 10/09/2025 10/09/2020 HPV/Cotest (30-65) 10/09/2025 10/09/2020 HPV VACCINES Aged Out No longer eligi ble based on patient's age to complete this topic Procedures Procedure Name Priority Date/Time Associated Diagnosis Comments CERV/VAG CYTO SCREEN PAP RLFX HPV Routine 10/09/2020 12:00 AM CDT CERV/VAG CYTO AGE BASED SCREEN PAP Routine 10/09/2020 12:00 AM CDT History of abnormal cervical Pap smear from Last 3 Months or Most Recently Relevant to Health Maintenance Results * CERV/VAG CYTO SCREEN PAP RLFX HPV (10/09/2020 12:00 AM CDT) CLINICAL INFORMATION [facility] Comment:Routine exam LAST MENSTRUAL PERIOD [facility] Comment:INFORMATION NOT PROV IDED PREV PAP: [facility] Comment:INFORMATION NOT PROV IDED PREV BX: [facility] Comment:INFORMATION NOT PROV IDED SOURCE [facility] Comment:Endocervix ADEQUACY: [facility] Comment: Satisfactory for evaluation. Endocervical/transformation zone component absent. Age and/or menstrual status not provided PAP INTERP [facility] Comment:Negative for intraep ithelial lesion or malignancy. COMMENT [facility] Comment: This Pap test has been evaluated with computer assisted technology. UTILITY HAND: [facility] Comment: BEF, CT(ASCP) CT screening location: [place] [address] [place] [address] QUEST RESULT [facility] Comment: Component Name: COMMENT EXPLANATORY NOTE: The Pap is a screening test for cervical cancer. It is not a diagnostic test and is subject to false negative and false positive results. It is most reliable when a satisfactory sample, regularly obtained, is submitted with relevant clinical findings and history, and when the Pap result is evaluated along with historic and current clinical information. Test Performed at: [facility] [id number] [place] [address] [employer] [facility] 10/09/2020 Lela Cr MD PATHOLOGY/CYTOLOGY ORDJermaine BARNES Final Result Performing Organization Address City/[facility] Co de Phone Number [facility] [address] [place] [address] * CERV/VAG CYTO AGE BASED SCREEN PAP (10/09/2020 12:00 AM CDT) COMMENT (PAP): [facility] Comment: This order for age-based cervical cancer and STI screening follows ACOG guidelines(PB 168, 140, DPF212). See individual assays for performing site location. Test [facility]formed at: [facility] [address] [place] [address] [facility] [employer] [facility] Genital SWAB OF ENDOCERVIX / Unknown 10/09/2020 Lela Cr MD PATHOLOGY/CYTOLOGY ORDJermaine BARNES Final Result Performing Organization Address City/[facility] Co de Phone Number [facility] [address] [place] [address] from Last 3 Months or Most Recently Relevant to Health Maintenance Insurance [facility] [employer] MEDICAID RX INFOCROSSING Medicaid Advance Directives For more information, please contact: [phone] * Full Code (Latest Code Status on File) Date Activated Date Inactivated Comments 06/23/2021 11:03 PM 06/25/2021 8:01 PM
--- OUTSIDE RECORDS SUMMARY | 2024-12-11 15:22 | XMS_ITS | Continuity of Care Document ---
Author Organization [facility] Address [address] [place] [address] Phone Care Team Providers Care Senior Vice President & General Counsel Name Role Phone Unavailable Unavailable Unavailable Advance Directives Directive Yes / No Effective Date File Name No Information Encounters Encounter Description Practice Location Reason(s) For Visit Diagnoses Date Provider Providers Copied on Encounter [facility], [address] [facility], [place], [place], [id number], tel:[phone] [facility] OUT[facility] No Information 201 6 No Information Referring Provider: ARABELLA Sandoval, [address] [place] [address] [address], [place], [address]. tel:[phone] Family History Family Member Type Diagnosis Age At Onset No Information Payers Payer name Insurance type Covered green party ID Authoriza tion(s) No Information Social History Type Description Quantity Date Captured Comments Sex Female Smoking Status No Information Chief Complaint And Reason For Visit No Information History Of Present Illness Encounter Date Complaint History Of Prese nt Illness No Information Instructions Date Instruction Additional Infor mation No Information Assessments Type Assessment Date No Information
--- OUTSIDE RECORDS SUMMARY | 2024-12-11 15:22 | XMS_ITS | Encounter Summary ---
[facility] Organization [facility] Address [address] [place] [address] Care Team Providers Care Fisher Oyster Name Role Phone Beni Thakkar DO Primary Care Provider [phone] Encounter Details Date Type Department Care Team (Late st Contact Info) Description 11/25/[address] [facility] [place] [address] [place] [address] [place] [address] [place] [id number] Social History Tobacco Use Types Packs/Day Years Used Date Smoking Tobacco: Every Day Cigarettes 0.5 10 Smokeless Tobacco: Never Alcohol Use Standard Drinks/Week Comments Yes 0 (1 standard drink = 0.6 oz pur e alcohol) Comments No Sex and Gender Information Value Date Recorded Sex Assigned at Not on file Legal Sex Female 10:55 AM CDT Gender Identity Not on file Sexual Orientation Not on file COVID-19 Exposure Response Date Recorded In the last month, have you been in contact with someone who was confirmed or suspected to have Coronavirus / COVID-19? No / Unsure 11/25/2019 9:21 AM CDT documented as of this encounter Miscellaneous Notes * Telephone Encounter - Daphnie Jordan MD - 11/25/2019 2:27 PM CDT Follow up in 3 months with Dolly should be fine * Telephone Encounter - Monet Torres - 11/25/2019 2:10 PM CDT Called patient left a message asking her to please call the office to schedule a 3 mos. follow appointment or with Dolly if their are no availabilities per notes. * Telephone Encounter - Monet Torres - 11/25/2019 2:09 PM CDT ----- Message from Allison Alaniz NP sent at 11/25/2019 12:26 PM CDT ----- [address] Romero for seizures. Or with Dolly if no availability documented in this encounter Plan of Treatment Not on file documented as of this encounter Visit Diagnoses Not on filedocumented in this encounter Care Teams Fisher Oyster Relationship Specialty Start Date End Date Beni Thakkar DO [address] [place] [address] PCP - General Family Practice 12/17/20 01/22/23 documented as of this encounter
--- OUTSIDE RECORDS SUMMARY | 2024-12-11 15:22 | XMS_ITS | Clinical Summary ---
Author Organization [facility] Address [address] [place] [address] Care Team Providers Care Locator Specialist Name Role Phone Rachel Burgos MD Unavailable [phone] Source Comments [facility],non-owned Affiliates and Associated Physician Practices is amultiple site organization consisting of ambulatory clinics and hospital sitesin [place], [place], [place] and [place]. This disclosure is being madepursuant to the Care Everywhere program and may not contain all information available regarding this patient. Last updated 18.[facility] Allergies Active Allergy Reactions Criticality Noted Date Comments Levetiracetam Vomiting 02/13/2022 Medications * Be aware that medications may not be up to date on this document. Alwaysverify current medications with the patient. ibuprofen (MOTRIN) 600 MG tablet Take 1 tablet by mouth every 6 hours as needed for Pain 30 tablet 9 Active lidocaine (LIDODERM) 5 % patch Apply 1 (one) patch to skin once daily 6 patch 2 Active Additional Information Patient not taking.Reported on 02/29/2024 lacosamide (Vimpat) 100 MG tablet Take 1 (one) tablet by mouth 2 times daily 60 tablet 4 Active Active Problems Patient Care Coordination No te Formatting of this note migh t be different from the original. Per record possibly baby up for adoption Problem Noted Date Diagnosed Date Seizure 02/25/2024 Chronic constipation 07/02/2017 Acute post-operative pain 07/02/2017 RUQ pain 06/30/2017 Cholelithiasis with choledocholithiasis 12/05/20 17 Elevated liver enzymes 06/30/2017 Chest pain 06/30/2017 Depression complicating , antepartum Anxiety 01/02/2014 Suicide attempt-Feb 2013 01/02/2014 Seizure disorder in , antepartum 2013 Immunizations Immunization Administration Dates Next Due INFLUENZA VACCINE, QUADR. (F LUZONE; FLULAVAL; FLUARIX; AFLURIA QUADRIVALENT; 6MO+), 0.5 ML (IIV4) 07/01/2017 Social History Tobacco Use Types Packs/Day Years Used Date Smoking Tobacco: Former Cigarettes Q uit: 04/01/2013 Smokeless Tobacco: Never Tobacco Cessation:Counseling Given: Not Answered Alcohol Use Standard Drinks/Week Comments No 0 (1 standard drink = 0.6 oz pur e alcohol) prior to AUDIT-C Answer Date Recorded Q1: How often do you have a drink containing alcohol? Never 02/29/2024 Q2: How many drinks containi ng alcohol do you have on a typical day when you are drinking? Patient does not drink Q3: How often do you have si x or more drinks on one occasion? Never 02/29/2024 Overall Financial Resource Strain (CARDIA) Answe r Date Recorded How hard is it for you to pa y for the very basics like food, housing, medical care, and heating? Not very hard 02/29/2024 [facility] - Occupational Stress Questionnaire Answer Date Recorded Do you feel stress - tense, restless, nervous, or anxious, or unable to sleep at night because your mind is troubled all the time - these days? Not at all 02/29/2024 Hunger Vital Sign Answer Date Recorded Within the past 12 months, y ou worried that your food would run out before you got the money to buy more. Never true 02/29/20 24 Within the past 12 months, t he food you bought just didn't last and you didn't have money to get more. Never true 02/29/2024 PRAPARE - Transportation Answer Date Re corded In the past 12 months, has l ack of transportation kept you from medical appointments or from getting medications? No 11/2023 In the past 12 months, has l ack of transportation kept you from meetings, work, or from getting things needed for daily living? No 02/29/2024 Housing Stability Vital Sign Answer Moreno e Recorded In the last 12 months, was t here a time when you were not able to pay the mortgage or rent on time? No 02/29/2024 In the last 12 months, how many places have you lived? 1 02/29/2024 In the last 12 months, was t here a time when you did not have a steady place to sleep or slept in a usp (including now)? 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 Gender Identity Not on file Sexual Orientation Not on file Last Filed Vital Signs Vital Sign Reading Time Taken Comments Blood Pressure 108/66 03/05/2024 7:30 AM CDT Pulse 70 03/05/2024 7:30 AM CDT Temperature 36.8 C (98.3 F) 03/05/2024 7:30 AM CDT Respiratory Rate 18 03/05/2024 7:30 AM CDT Oxygen Saturation 74% 03/05/2024 7:30 AM CDT Inhaled Oxygen Concentration - - Weight 53.6 kg (118 lb 1.6 oz) 02/29/2024 10:18 AM CDT Height 172.7 cm (5' 8 ) 02/29/2024 10:18 AM CDT Body Mass Index 17.96 02/29/2024 10:18 AM CDT Plan of Treatment Health Maintenance Due Date Last Done Comments PAP SMEAR 1993 HEPATITIS C SCREENING 04/11/2011 DTAP/TDAP/TD VACCINES (1 - Tdap) 2012 HEPATITIS B VACCINE (1 of 3 - 19+ 3-dose series) 2012 COVID-19 VACCINE ( - 2023-2 5 season) 2024 DEPRESSION SCREENING 07/27/2024 INFLUENZA VACCINE (Season Ended) 2025 07/01/20 17 ZOSTER VACCINE (1 of 2) 2043 HIV SCREENING Completed 02/13/2022 HIB VACCINE Aged Out No longer eligi ble based on patient's age to complete this topic HPV VACCINE Aged Out No longer eligi ble based on patient's age to complete this topic MENINGOCOCCAL (Group B) VACC INE SHARED DECISION-MAKING Aged Out No longer eligibl e based on patient's age to complete this topic MENINGOCOCCAL GROUPS A/C/Y/W VACCINE Aged Out No longer eligible b ased on patient's age to complete this topic PNEUMOCOCCAL VACCINE Aged Out No long er eligible based on patient's age to complete this topic Procedures Procedure Name Priority Date/Time Associated Diagnosis Comments HIV-1 HIV-2 ANTIBODY + HIV P24 AG PANEL STAT 02/13/2022 11:44 AM CDT from Last 3 Months or Most Recently Relevant to Health Maintenance Results * HIV-1 HIV-2 ANTIBODY + HIV P24 AG PANEL (02/13/2022 11:44 AM CDT) HIV1/2 Ab + P24 Ag Non Reactive Non Reactive 02/13/2022 1:50 PM CDT [facility] Blood BLOOD SPECIMEN / Unknown Venipuncture / Unknown 02/13/2022 11:44 AM CDT 02/13/2022 12:04 PM CDT Narrative [facility] - 02/13/2022 1:50 PM CDT No Laboratory evidence of HIV infection. Kishore Sow MD LAB - CHEMISTRY ORDERABLES Merry l Result Performing Organization Address City/State/[facility] Co de Phone Number [facility] [address] [place] [address] from Last 3 Months or Most Recently Relevant to Health Maintenance Insurance [facility] MEDICAID [employer] Liability [employer] Advance Directives * Full Code (Latest Code Status on File) Date Activated Date Inactivated Comments 02/29/2024 10:48 AM 03/05/2024 5:03 PM * Full Code Date Activated Date Inactivated Comments 06/30/2017 8:20 PM 07/03/2017 3:28 PM Care Teams Locator Specialist Relationship Specialty Start Date End Date Rachel Burgos MD [address] [facility] [address] [place] [address] PCP - OBGYN Obstetrics and Gynecology 09/26/15
--- OUTSIDE RECORDS SUMMARY | 2024-12-11 15:22 | XMS_ITS | Data Portability ---
Author Organization [facility] Address [address] [place] [address] Assessment No assessment recorded. Plan of Treatment Reminders Order Date Submit Date Provider Last Modified By Organization Details Last Modified Time Details Appointments ANY 2024 08:45A M Bev Azar-Sm ith, [employer] SUPERVISOR-Bc Not available Not available Not available Lab vagina l pathog ens panel, CORINA+pr obe, vagina l fluid 2024 025 AMHERST [facility] (Centralized Electronic Ordering - All Locations), Patient Can Go To The Location Of Their Choice, 11/08/2024 07:29:51 mycopl asma genita lium DNA, qualit ative, PCR 2024 025 ROBERTO [facility] (Centralized Electronic Ordering - All Locations), Patient Can Go To The Location Of Their Choice, 11/08/2024 07:29:52 HIV 1 + 2, meanin gful use set 2024 025 ROBERTO [facility] (Centralized Electronic Ordering - All Locations), Patient Can Go To The Location Of Their Choice, 11/26/2024 11:19:20 RPR (rapid plasma reagin ), serum 2024 025 [facility] Patient Can Go To The Location Of Their Choice, 11/26/2024 11:19:19 HBsAg (hepat itis B surfac e Ag), EIA, serum 2024 025 [facility] Patient Can Go To The Location Of Their Choice, 11/26/2024 11:19:18 Hepati tis C IgG Ab, qual, serum 2024 025 ROBERTO [facility] (Centralized Electronic Ordering - All Locations), Patient Can Go To The Location Of Their Choice, [id number] 11/26/2024 11:19:15 herpes simple x virus 1 + 2 IgG panel, serum or plasma 2024 025 ROBERTO [facility] (Centralized Electronic Ordering - All Locations), Patient Can Go To The Location Of Their Choice, [id number] 11/26/2024 11:19:16 vagina l pathog ens panel, CORINA+pr obe, vagina l fluid 2023 024 [facility], [address] [facility], [facility], [place], [address], 05/15/2024 11:07:47 cultur e, urine 2023 024 [facility], [address] [facility], [facility], [place], [address], 05/14/2024 07:14:58 urinal ysis, dipsti ck 2023 024 [email or web address] In-Office Order, Internal Use Only DO Not Attach Compendium DO Not Attach Compendium, Do Not Delete/merge, [id number] 05/12/2024 15:34:51 cytolo gy report , thin prep, smear or scrapi ng, cervic al or vagina l - brush and broom. cervic al and endoce rvical 2023 024 [facility] [address] [facility], [facility], [place], [address], 08/10/2023 11:10:10 pregna ncy test, urine 2023 024 fernstrn In-Office Order, Internal Use Only DO Not Attach Compendium DO Not Attach Compendium, Do Not Delete/merge, [id number] 08/05/2023 17:45:22 CMP, serum or plasma 2022 023 ROBERTO [facility], [address] [facility], [facility], [place], [address], 07/28/2023 06:27:23 lipid panel, serum 2022 023 ROBERTO [facility], [address] [facility], [facility], [place], [address], 07/28/2023 06:27:22 CBC w/ auto diff 2022 023 ROBERTO [facility], [address] [facility], [facility], [place], [address], 07/28/2023 06:27:23 TSH, ultra- sensit sara, serum 2022 023 ROBERTO [facility], [address] [facility], [facility], [place], [address], 07/28/2023 06:27:15 Referral gyneco logist referr al 2023 024 roge [facility], [address] [place], [address], 12/04/2023 17:09:36 neurol ogist referr al 2022 023 ROBERTO Brown MD, 1 [facility], [facility], [place], [address], 10/07/2023 12:46:57 Procedures None record ed. Surgeries None record ed. Imaging US, pelvis , transa bdomin al + transv aginal 2023 024 ROBERTO [facility]uling, [address] [place], [address], 08/27/2023 15:46:29 Medication Orders metron idazol e 500 mg tablet 2024 [facility]25 [id number], [address], [place], [place], [id number], 11/03/2024 17:35:43 metron idazol e 500 mg tablet 2023 [facility] #[id number], [address], [place], [place], [id number], 05/12/2024 15:33:04 Junel Fe 24 1 mg-20 mcg (24)/7 5 mg (4) tablet 2023 024 [facility] #[id number], [address], [place], [place], [id number], 05/12/2024 14:52:48 Patient TargetsNo targets recorded. Patient Instructions Encounter Date Encounter Id Patient Instructions Last Modified By Organization Details Last Modified Time 08/05/2023 [id number] pt educated on seizure precautions. 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 pt wanting total hysterectomy Referring Physician: Sally Novak, [employer], Encounter Date: 08/05/2023 Results Created Date Observation Date Name Description Value Unit Range Abnormal Flag Note LastModifiedBy Organization Detail LastModifiedTime 07/24/2007/25/2023 TSH RFX ON ABNOR MAL TO FREE T4 TSH 1.010 uIU/m L 0.450- 4.500 Not Available [facility] ([facility]) [address] [facility], [place], [address], 07/25/2023 06:37:11 07/24/20 23 07/25/2023 LIPID PANEL cholesterol, total 114 mg/dL 100-19 9 Not Available [facility] ([facility]) [address] [place], [address], 07/25/2023 06:37:12 07/24/20 23 07/25/2023 LIPID PANEL triglyceride s 50 mg/dL 0-149 Not Available [facility] ([facility]) [address] [place], [address], 07/25/2023 06:37:12 07/24/20 23 07/25/2023 LIPID PANEL HDL cholesterol 43 mg/dL >39 Not Available [facility] ([facility]) [address] [place], [address], 07/25/2023 06:37:12 07/24/20 23 07/25/2023 LIPID PANEL VLDL cholesterol lakeisha 12 mg/dL 5-40 Not Available [facility] ([facility]) [address] [place], [address], 07/25/2023 06:37:12 07/24/20 23 07/25/2023 LIPID PANEL LDL chol calc ([facility]) 59 mg/dL 0-99 Not Available [facility] ([facility]) [address] [place], [address], 07/25/2023 06:37:12 07/24/20 23 07/25/2023 COMP. METAB OLIC PANEL (14) glucose 89 mg/dL 70-99 Not Available [facility] ([facility]) [address] [place], [address], 07/25/2023 06:37:13 07/24/20 23 07/25/2023 COMP. METAB OLIC PANEL (14) BUN 6 mg/dL 6-20 Not Available [facility] ([facility]) [address] [place], [address], 07/25/2023 06:37:13 07/24/20 23 07/25/2023 COMP. METAB OLIC PANEL (14) creatinine 0.81 mg/dL 0.57-1 .00 Not Available [facility] ([facility]) [address] [facility] [place], [address], 07/25/2023 06:37:13 07/24/20 23 07/25/2023 COMP. METAB OLIC PANEL (14) eGFR 100 mL/mi n/1.7 3 >59 Not Available [facility] ([facility]) [address] [facility] [place], [address], 07/25/2023 06:37:13 07/24/20 23 07/25/2023 COMP. METAB OLIC PANEL (14) BUN/creatini ne ratio 7 9-23 below low normal Not Available [facility] ([facility]) [address] [facility] [place], [address], 07/25/2023 06:37:13 07/24/20 23 07/25/2023 COMP. METAB OLIC PANEL (14) sodium 140 mmol/ L 134-14 4 Not Available [facility] ([facility]) [address] [facility] [place], [address], 07/25/2023 06:37:13 07/24/20 23 07/25/2023 COMP. METAB OLIC PANEL (14) potassium 3.8 mmol/ L 3.5-5. 2 Not Available [facility] ([facility]) [address] [facility] [place], [address], 07/25/2023 06:37:13 07/24/20 23 07/25/2023 COMP. METAB OLIC PANEL (14) chloride 106 mmol/ L 96-106 Not Available [facility] ([facility]) [address] [facility] [place], [address], 07/25/2023 06:37:13 07/24/20 23 07/25/2023 COMP. METAB OLIC PANEL (14) carbon dioxide, total 21 mmol/ L 20-29 Not Available [facility] ([facility]) [address] [facility] [place], [address], 07/25/2023 06:37:13 07/24/20 23 07/25/2023 COMP. METAB OLIC PANEL (14) calcium 9.3 mg/dL 8.7-10 .2 Not Available [facility] ([facility]) [address] [place], [address], 07/25/2023 06:37:13 07/24/20 23 07/25/2023 COMP. METAB OLIC PANEL (14) protein, total 6.9 g/dL 6.0-8. 5 Not Available [facility] ([facility]) [address] [place], [address], 07/25/2023 06:37:13 07/24/20 23 07/25/2023 COMP. METAB OLIC PANEL (14) albumin 4.8 g/dL 4.0-5. 0 Not Available [facility] ([facility]) [address] [place], [address], 07/25/2023 06:37:13 07/24/20 23 07/25/2023 COMP. METAB OLIC PANEL (14) globulin, total 2.1 g/dL 1.5-4. 5 Not Available [facility] ([facility]) [address] [place], [address], 07/25/2023 06:37:13 07/24/20 23 07/25/2023 COMP. METAB OLIC PANEL (14) A/G ratio 2.3 1.2-2. 2 above high normal Not Available [facility] ([facility]) [address] [place], [address], 07/25/2023 06:37:13 07/24/20 23 07/25/2023 COMP. METAB OLIC PANEL (14) bilirubin, total 0.4 mg/dL 0.0-1. 2 Not Available [facility] ([facility]) [address] [facility] [place], [address], 07/25/2023 06:37:13 07/24/20 23 07/25/2023 COMP. METAB OLIC PANEL (14) alkaline phosphatase 69 IU/L 44-121 Not Available [facility] ([facility]) [address] [facility], [place], [address], 07/25/2023 06:37:13 07/24/20 23 07/25/2023 COMP. METAB OLIC PANEL (14) AST (SGOT) 10 IU/L 0-40 Not Available [facility] ([facility]) [address] [facility], [place], [address], 07/25/2023 06:37:13 07/24/20 23 07/25/2023 COMP. METAB OLIC PANEL (14) ALT (SGPT) 6 IU/L 0-32 Not Available [facility] ([facility]) [address] [facility], [place], [address], 07/25/2023 06:37:13 07/24/20 23 07/25/2023 CBC WITH DIFFE RENTI AL/PL ATELE T WBC 4.5 x10e3 /uL 3.4-10 .8 Not Available [facility] ([facility]) [address] [facility], [place], [address], 07/25/2023 06:37:13 07/24/20 23 07/25/2023 CBC WITH DIFFE RENTI AL/PL ATELE T RBC 4.63 x10e6 /uL 3.77-5 .28 Not Available [facility] ([facility]) [address] [facility], [place], [address], 07/25/2023 06:37:13 07/24/20 23 07/25/2023 CBC WITH DIFFE RENTI AL/PL ATELE T hemoglobin 13.2 g/dL 11.1-1 5.9 Not Available [facility] ([facility]) [address] [place], [address], 07/25/2023 06:37:13 07/24/20 23 07/25/2023 CBC WITH DIFFE RENTI AL/PL ATELE T hematocrit 40.0 % 34.0-4 6.6 Not Available [facility] ([facility]) [address] [facility], [place], [address], 07/25/2023 06:37:13 07/24/20 23 07/25/2023 CBC WITH DIFFE RENTI AL/PL ATELE T MCV 86 fL 79-97 Not Available [facility] ([facility]) [address] [facility], [place], [address], 07/25/2023 06:37:13 07/24/2007/25/2023 CBC WITH DIFFE RENTI AL/PL ATELE T MCH 28.5 pg 26.6-3 3.0 Not Available [facility] ([facility]) [address] [facility], [place], [address], 07/25/2023 06:37:13 07/24/20 23 07/25/2023 CBC WITH DIFFE RENTI AL/PL ATELE T MCHC 33.0 g/dL 31.5-3 5.7 Not Available [facility] ([facility]) [address] [facility], [place], [address], 07/25/2023 06:37:13 07/24/20 23 07/25/2023 CBC WITH DIFFE RENTI AL/PL ATELE T RDW 12.3 % 11.7-1 5.4 Not Available [facility] ([facility]) [address] [place], [address], 07/25/2023 06:37:13 07/24/20 23 07/25/2023 CBC WITH DIFFE RENTI AL/PL ATELE T platelets 214 x10e3 /uL 150-45 0 Not Available [facility] ([facility]) [address] [place], [address], 07/25/2023 06:37:13 07/24/20 23 07/25/2023 CBC WITH DIFFE RENTI AL/PL ATELE T neutrophils 53 % notest ab. Not Available [facility] ([facility]) [address] [facility], [place], [address], 07/25/2023 06:37:13 07/24/20 23 07/25/2023 CBC WITH DIFFE RENTI AL/PL ATELE T lymphs 38 % notest ab. Not Available [facility] ([facility]) [address] [facility], [place], [address], 07/25/2023 06:37:13 07/24/2007/25/2023 CBC WITH DIFFE RENTI AL/PL ATELE T monocytes 9 % notest ab. Not Available [facility] ([facility]) [address] [facility], [place], [address], 07/25/2023 06:37:13 07/24/20 23 07/25/2023 CBC WITH DIFFE RENTI AL/PL ATELE T eos 0 % notest ab. Not Available [facility] ([facility]) [address] [facility], [place], [address], 07/25/2023 06:37:13 07/24/20 23 07/25/2023 CBC WITH DIFFE RENTI AL/PL ATELE T basos 0 % notest ab. Not Available [facility] ([facility]) [address] [facility], [place], [address], 07/25/2023 06:37:13 07/24/20 23 07/25/2023 CBC WITH DIFFE RENTI AL/PL ATELE T neutrophils (absolute) 2.3 x10e3 /uL 1.4-7. 0 Not Available [facility] ([facility]) [address] [facility], [place], [address], 07/25/2023 06:37:13 07/24/20 23 07/25/2023 CBC WITH DIFFE RENTI AL/PL ATELE T lymphs (absolute) 1.7 x10e3 /uL 0.7-3. 1 Not Available [facility] ([facility]) [address] [facility], [place], [address], 07/25/2023 06:37:13 07/24/20 23 07/25/2023 CBC WITH DIFFE RENTI AL/PL ATELE T monocytes(ab solute) 0.4 x10e3 /uL 0.1-0. 9 Not Available [facility] ([facility]) [address] [facility], [place], [address], 07/25/2023 06:37:13 07/24/2007/25/2023 CBC WITH DIFFE RENTI AL/PL ATELE T eos (absolute) 0.0 x10e3 /uL 0.0-0. 4 Not Available [facility] ([facility]) [address] [facility], [place], [address], 07/25/2023 06:37:13 07/24/20 23 07/25/2023 CBC WITH DIFFE RENTI AL/PL ATELE T baso (absolute) 0.0 x10e3 /uL 0.0-0. 2 Not Available [facility] ([facility]) [address] [facility], [place], [address], 07/25/2023 06:37:13 07/24/20 23 07/25/2023 CBC WITH DIFFE RENTI AL/PL ATELE T immature granulocytes 0 % notest ab. Not Available [facility] ([facility]) [address] [facility], [place], [address], 07/25/2023 06:37:13 07/24/20 23 07/25/2023 CBC WITH DIFFE RENTI AL/PL ATELE T immature grans (abs) 0.0 x10e3 /uL 0.0-0. 1 Not Available [facility] ([facility]) [address] [place], [address], 07/25/2023 06:37:13 08/05/19 24 08/07/2023 IGP,C TNGTV ,APT HPV,R FX16/ 18,45 HPV aptima Negati ve negati ve This nucle ic acid ampli ficat ion test detec ts fourt een high- risk HPV types (16,1 8,31, 33,35 ,39,4 5,51, 52,56 ,58,5 9,66, 68) witho ut diffe renti ation . Not Available [facility] ([facility]) [address] [place], [address], 08/10/2023 11:10:10 08/05/19 24 08/07/2023 IGP,C TNGTV ,APT HPV,R FX16/ 18,45 chlamydia, nuc. acid amp Negati ve negati ve Not Available [facility] ([facility]) [address] [place], [address], 08/10/2023 11:10:10 08/05/19 24 08/07/2023 IGP,C TNGTV ,APT HPV,R FX16/ 18,45 gonococcus, nuc. acid amp Negati ve negati ve Not Available [facility] ([facility]) [address] [place], [address], 08/10/2023 11:10:10 08/05/19 24 08/07/2023 IGP,C TNGTV ,APT HPV,R FX16/ 18,45 trich vag by CORINA Negati ve negati ve Not Available [facility] ([facility]) [address] [place], [address], 08/10/2023 11:10:10 08/05/19 24 08/10/2023 IGP,C TNGTV ,APT HPV,R FX16/ 18,45 diagnosis: Commen t NEGAT SARA FOR INTRA EPITH ELIAL LESIO N OR MALIG BRYANNA . THIS SPECI MEN WAS RESCR EENED PART OF OUR QUALI TY CONTR OL PROGR AM. Not Available [facility] ([facility]) [address] [facility], [place], [address], 08/10/2023 11:10:10 08/05/19 24 08/10/2023 IGP,C TNGTV ,APT HPV,R FX16/ 18,45 specimen adequacy: Suellen pink Satis facto ry for evalu ation . Endoc ervic al and/o r squam ous metap lasti c cells (endo cervi lakeisha compo nent) are prese nt. Not Available [facility] ([facility]) [address] [place], [address], 08/10/2023 11:10:10 08/05/19 24 08/10/2023 IGP,C TNGTV ,APT HPV,R FX16/ 18,45 clinician provided ICD10: Suellen pink Z01.4 19 Not Available [facility] ([facility]) [address] [place], [address], 08/10/2023 11:10:10 08/05/19 24 08/10/2023 IGP,C TNGTV ,APT HPV,R FX16/ 18,45 performed by: Suellen vazquez, Cytot echno logis t (ASCP ) Not Available [facility] ([facility]) [address] [place], [address], 08/10/2023 11:10:10 08/05/19 24 08/10/2023 IGP,C TNGTV ,APT HPV,R FX16/ 18,45 QC reviewed by: Suellen Mao , Cytot echno logis t Not Available [facility] ([facility]) [address] [place], [address], 08/10/2023 11:10:10 08/05/19 24 08/10/2023 IGP,C TNGTV ,APT HPV,R FX16/ 18,45 . . Not Available [facility] ([facility]) [address] [place], [address], 08/10/2023 11:10:10 08/05/19 24 08/10/2023 IGP,C TNGTV ,APT HPV,R FX16/ 18,45 note: Commen t The Pap smear is a scree racquel test desig manolo to aid in the detec tion of mckenna ligna nt and malig nant condi tions of the uteri ne cervi x. It is not a diagn ostic proce dure and shoul d not be used as the sole means of detec ting cervi lakeisha cance r. Both false -posi tive and false -nega tive repor ts do occur . Not Available [facility] ([facility]) [address] [facility], [place], [address], 08/10/2023 11:10:10 08/05/19 24 08/10/2023 IGP,C TNGTV ,APT HPV,R FX16/ 18,45 test methodology: Commen t This liqui d based ThinP rep(R ) pap test was scree manolo with the use of an image guide d syste m. Not Available [facility] ([facility]) [address] [facility], [place], [address], 08/10/2023 11:10:10 08/05/19 24 08/10/2023 IGP,C TNGTV ,APT HPV,R FX16/ 18,45 HPV genotype reflex Commen t Crite kevin not met, HPV Genot ype not perfo rmed. Not Available [facility] ([facility]) [address] [facility], [place], [address], 08/10/2023 11:10:10 08/05/19 24 08/05/2023 pregn andre test, urine HCG negati ve Not Available In-Office Order Internal Use Only DO Not Attach Compendium DO Not Attach Compendium, Do Not Delete/merge, [id number] 08/05/2023 16:49:17 02/29/20 24 02/29/2024 Compr ehens sara metab olic 1999 panel - Serum or Plasm a glucose [mass/volume ] in serum or plasma 82 mg/dL low: 70mg/d Lhigh: 105mg/ dL Gluco se 82 70 - 105 mg/dL 02/28 1:09 PM CDT [facility] Not Available Not Available 11/02/2024 17:28:52 02/29/20 24 02/29/2024 Compr ens sara metab ic 1999 panel - Serum or Plasm a sodium [moles/volum e] in serum or plasma 141 mmol/ L low: 136mmo l/Lhig h: 145mmo l/L Sodiu m 141 136 - 145 mmol/ L 02/28 1:09 PM CDT [facility] Not Available Not Available 11/02/2024 17:28:52 02/29/20 24 02/29/2024 Compr ens sara metab ic 1999 panel - Serum or Plasm a potassium [moles/volum e] in serum or plasma 3.8 mmol/ L low: 3.5mmo l/Lhig h: 5.1mmo l/L Potas sium 3.8 3.5 - 5.1 mmol/ L 02/28 1:09 PM CDT [facility] Not Available Not Available 11/02/2024 17:28:52 02/29/20 24 02/29/2024 [facility] sara metab [facility] 1999 panel - Serum or Plasm a chloride [moles/volum e] in serum or plasma 108 mmol/ L low: 98mmol /Lhigh : 107mmo l/L high Chlor connor 108 (H) 98 - 107 mmol/ L 02/28 1:09 PM CDT [facility] Not Available Not Available 11/02/2024 17:28:52 02/29/20 24 02/29/2024 Compr ens sara metab ic 1999 panel - Serum or Plasm a carbon dioxide, total [moles/volum e] in serum or plasma 21 mmol/ L low: 22mmol /Lhigh : 29mmol /L low CO2 21 (L) 22 - 29 mmol/ L 02/28 1:09 PM CDT [facility] Not Available Not Available 11/02/2024 17:28:52 02/29/20 24 02/29/2024 [facility] 1999 panel - Serum or Plasm a calcium [mass/volume ] in serum or plasma 9.1 mg/dL low: 8.4mg/ dLhigh : 10.4mg /dL Calci um 9.1 8.4 - 10.4 mg/dL 02/28 1:09 PM CDT [facility] Not Available Not Available 11/02/2024 17:28:52 02/29/20 24 02/29/2024 [facility] 1999 panel - Serum or Plasm a anion gap in blood by calculation 12 mmol/ L low: 6mmol/ Lhigh: 16mmol /L Anion Gap 12 6 - 16 mmol/ L 02/28 1:09 PM CDT [facility] Not Available Not Available 11/02/2024 17:28:52 02/29/20 24 02/29/2024 [facility] sara [employer] [facility] 1999 panel - Serum or Plasm a urea nitrogen [mass/volume ] in serum or plasma 8 mg/dL low: 5.3mg/ dLhigh : 18.7mg /dL BUN 8 5.3 - 18.7 mg/dL 02/28 1:09 PM CDT [facility] Not Available Not Available 11/02/2024 17:28:52 02/29/20 24 02/29/2024 [facility] [employer] [facility] 1999 panel - Serum or Plasm a creatinine [mass/volume ] in serum or plasma 0.75 mg/dL low: 0.57mg /dLhig h: 1.11mg /dL Creat inine 0.75 0.57 - 1.11 mg/dL 02/28 1:09 PM CDT [facility] Not Available Not Available 11/02/2024 17:28:52 02/29/20 24 02/29/2024 Compr ens sara Pure[employer] ic 2000 panel - Serum or Plasm a alkaline phosphatase [enzymatic activity/vol ume] in serum or plasma 63 U/L low: 40U/Lh igh: 150U/L Alkal ine Phosp hatas e 63 40 - 150 U/L 02/28 1:09 PM CDT [facility] Not Available Not Available 11/02/2024 17:28:52 02/29/20 24 02/29/2024 Compr ehens sara metab olic 1999 panel - Serum or Plasm a alanine aminotransfe rase [enzymatic activity/vol ume] in serum or plasma 14 U/L low: 0U/Lhi gh: 55U/L ALT 14 0 - 55 U/L 02/28 1:09 PM CDT [facility] Not Available Not Available 11/02/2024 17:28:52 02/29/20 24 02/29/2024 Compr Mahindra REVAens sara metab olic 1999 panel - Serum or Plasm a aspartate aminotransfe rase [enzymatic activity/vol ume] in serum or plasma 15 U/L low: 5U/Lhi gh: 34U/L AST 15 5 - 34 U/L 02/28 1:09 PM CDT [facility] Not Available Not Available 11/02/2024 17:28:52 02/29/20 24 02/29/2024 Compr Mahindra REVAens sara metab olic 1999 panel - Serum or Plasm a protein [mass/volume ] in serum or plasma 7 text: 6.4 - 8.3 gm/dL Prote in Total 7.0 6.4 - 8.3 gm/dL 02/28 1:09 PM CDT [facility] Not Available Not Available 11/02/2024 17:28:52 02/29/20 24 02/29/2024 Compr Mahindra REVAens sara metab olic 1999 panel - Serum or Plasm a albumin [mass/volume ] in serum or plasma 3.9 text: 3.4 - 5.0 gm/dL Album in 3.9 3.4 - 5.0 gm/dL 02/28 1:09 PM CDT [facility] Not Available Not Available 11/02/2024 17:28:52 02/29/20 24 02/29/2024 Compr Mahindra REVAens sara metab olic 2000 panel - Serum or Plasm a bilirubin.to sudhakar [mass/volume ] in serum or plasma 0.3 mg/dL low: 0.2mg/ dLhigh : 1.2mg/ dL Bilir ubin Total 0.3 0.2 - 1.2 mg/dL 02/28 1:09 PM CDT [facility] Not Available Not Available 11/02/2024 17:28:52 02/29/20 24 02/29/2024 Compr ehens sara metab olic 2000 panel - Serum or Plasm a glomerular filtration rate [volume rate/area] in serum, plasma or blood by creatinine-b ased formula (CKD-epi)/1. 73 sq M text: >=90 mL/min /1.73 m2 eGFR by CKD-E PI >90 >=90 mL/mi n/1.7 3 m2 02/28 1:09 PM CDT [facility] Not Available Not Available 11/02/2024 17:28:52 02/29/20 24 02/29/2024 Compr ehens sara metab olic 2000 panel - Serum or Plasm a interpretati on and review of laboratory results Abnorm al Not Available Not Available 17:28:52 02/29/20 24 02/29/2024 CBC W Auto Diffe renti al panel - Blood leukocytes [#/volume] in blood by automated count 4.8 text: 4.0 - 10.7 x10e9/ L WBC 4.8 4.0 - 10.7 x10E9 /L 02/28 12:54 PM CDT [facility] Not Available Not Available 11/02/2024 17:28:52 02/29/20 24 02/29/2024 CBC W Auto Diffe renti al panel - Blood erythrocytes [#/volume] in blood by automated count 4.71 text: 3.90 - 5.20 x10e12 /L RBC Count 4.71 3.90 - 5.20 x10E1 2/L 02/28 12:54 PM CDT [facility] Not Available Not Available 11/02/2024 17:28:52 02/29/20 24 02/29/2024 CBC W Auto Diffe renti al panel - Blood hemoglobin [mass/volume ] in blood 12.9 g/dL low: 11.9g/ dLhigh : 15.8g/ dL Hemog lobin 12.9 11.9 - 15.8 g/dL 02/28 12:54 PM CDT [facility] Not Available Not Available 11/02/2024 17:28:52 02/29/20 24 02/29/2024 CBC W Auto Diffe christina bruce panel - Blood hematocrit [volume fraction] of blood by automated count 40.6 % low: 34.8%h igh: 46.1% Hemat ocrit 40.6 34.8 - 46.1 % 02/28 12:54 PM CDT [facility] Not Available Not Available 11/02/2024 17:28:52 02/29/20 24 02/29/2024 CBC W Auto Diffe christina bruce panel - Blood MCV [entitic mean volume] in red blood cells by automated count 86.2 fL low: 80fLhi gh: 98fL MCV 86.2 80.0 - 98.0 fL 02/28 12:54 PM CDT [facility] Not Available Not Available 11/02/2024 17:28:52 02/29/20 24 02/29/2024 CBC W Auto Diffeboni bruce panel - Blood MCH [entitic mass] by automated count 27.4 pg low: 26.7pg high: 33.6pg MCH 27.4 26.7 - 33.6 pg 02/28 12:54 PM CDT [facility] Not Available Not Available 11/02/2024 17:28:52 02/29/2002/29/2024 CBC W Auto Diffe christina bruce panel - Blood MCHC [entitic mass/volume] in red blood cells by automated count 31.8 g/dL low: 31.7g/ dLhigh : 36.3g/ dL MCHC 31.8 31.7 - 36.3 g/dL 02/28 12:54 PM CDT [facility] Not Available Not Available 11/02/2024 17:28:52 02/29/2002/29/2024 CBC W Auto Diffe christina al panel - Blood erythrocyte [distwidth] in red blood cells by automated count 13 % low: 11.3%h igh: 14.8% RDW-C V 13.0 11.3 - 14.8 % 02/28 12:54 PM CDT [facility] Not Available Not Available 11/02/2024 17:28:52 02/29/20 24 02/29/2024 CBC W Auto Diffe renti al panel - Blood platelets [#/volume] in blood by automated count 220 text: 150 - 420 x10e9/ L Plate let Count 220 150 - 420 x10E9 /L 02/28 12:54 PM CDT [facility] Not Available Not Available 11/02/2024 17:28:52 02/29/20 24 02/29/2024 CBC W Auto Diffe renti al panel - Blood platelet [entitic mean volume] in blood by automated count 10.9 fL low: 7.8fLh igh: 11.4fL MPV 10.9 7.8 - 11.4 fL 02/28 12:54 PM CDT [facility] Not Available Not Available 11/02/2024 17:28:52 02/29/20 24 02/29/2024 CBC W Auto Diffe renti al panel - Blood neutrophils/ leukocytes in blood by automated count 57.6 % low: 41%hig h: 74% Neutr ophil % 57.6 41.0 - 74.0 % 02/28 12:54 PM CDT [facility] Not Available Not Available 11/02/2024 17:28:52 02/29/20 24 02/29/2024 CBC W Auto Diffe renti al panel - Blood lymphocytes/ leukocytes in blood by automated count 31.5 % low: 17%hig h: 47% Lymph ocyte % 31.5 17.0 - 47.0 % 02/28 12:54 PM CDT [id number]|2024-12-11 15:22:00|2024-12-11 15:22:00|XMS_ITS|BKG DAEMON|External Medical Summaries|[id number]|" Clinical Summary Created on: December 11, 2024 Caterina Pike : 1995 Sex: Female Author Organization [facility] - [facility]OLOGY - [place] Address [address] [place] [address] Phone Care Team Providers Care Wire Drawing Setter Name Role Phone Avelinamariah Aaliyah Sanchez APRN, CORDAGE SALES REPRESENTATIVE Unavailable + [phone] Arely Shetty PAC Primary Care Pro vider Gladis Hawley APRN, MECHANICAL COMMISSIONING ENGINEER Unavailable Allergies Active Allergy Reactions Criticality Noted Date Comments Diazepam Other (see Comments) High 08/20/2020 Pain, nausea Levetiracetam Vomiting 07/24/2023 Medications Midazolam (Nayzilam) 5 MG/0.1ML SolutionIndicati ons: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 60 Tablet 2 10/17/2024 Active metroNIDAZOLE (FLAGYL) 500 MG Tablet 11/03/2024 Active Active Problems Problem Noted Date Diagnosed Date Constipation 12/07/2024 Seizures 11/07/2024 Overview (11/07/2024): NEURO following Memory loss 11/07/2024 Encounters Date Type Department Care Team Description 12/07/2024 9:55 AM CDT [facility] [address] [place] [address] Gilberto Gooden, ALFONSO, WALKING DRAGLINE OPERATOR 12/07/2024 9:30 AM CDT - 12/07/2024 10:00 AM CDT [facility] [address] [place] [address] Michael Maldonado MD COLONOSCOPY - NORMAL COLONOSCOPY 12/07/2024 8:55 AM CDT [facility]illary [facility] Main [address] [place] [address] Michael Maldonado MD 12/07/2024 8:48 AM CDT - 12/07/2024 11:19 AM CDT [facility]Pac[facility] [address] [place] [address] Michael Maldonado MD Constipation Discharge Disposition: Discharged to home or Selfcare 12/07/2024 Travel 11/23/2024 Travel 11/21/2024 10:00 AM CDT [facility] [address] [place] [address] Gladis Hawley APRN, MECHANICAL COMMISSIONING ENGINEER LLQ pain (Primary Dx); Constipation, unspecified constipation type Discharge Disposition: Discharged to home or Selfcare 11/21/2024 [facility] [place] [address] [place] [address] Michael Maldonado MD 11/21/2024 [facility]phone [facility] [address] [place] [address] Gladis Hawley APRN, MECHANICAL COMMISSIONING ENGINEER 11/20/2024 Travel 11/09/2024 Results [facility] [address] [place] [address] Arely Shetty, PAC XR ABDOMEN KUB FLAT PLATE 11/09/2024 Results Follow-Up [facility] [address] [place] [address] Arely Shetty, HERNANDO HEPATITIS C ANTIBODY, HEMOGLOBIN A1C W/ ESTIMATED GLUCOSE, LIPID PANEL 11/08/2024 8:38 AM CDT - 11/08/2024 11:59 PM CDT Hospital Encounter [facility] Diagnostic Radiology [address] [place] [address] Arely Shetty, HERNANDO Discharge Disposition: Discharged to home or Selfcare 11/08/2024 Results Follow-Up [facility] Primary Care [facility] [address] [place] [address] Arely Shetty, HERNANDO THYROID STIMULATING HORMONE (TSH), CMP (COMPREHENSIVE METABOLIC PANEL), CBC WITH AUTO DIFFERENTIAL, Additional followed-up results: 3 11/07/2024 11:15 AM CDT Office Visit [facility] Internal Medicine - [place] [address] [place] [address] Arely Shetty, HERNANDO Weight loss (Primary Dx); Seizures (HCC); Need for hepatitis C screening test; Well adult exam; Constipation, unspecified constipation type Discharge Disposition: Discharged to home or Selfcare 11/07/2024 Travel 11/05/2024 Travel 10/26/2024 11:30 AM CDT Office Visit [facility] - Neurology - [place] [address] [place] [address] Aaliyah Vila APRN, CORDAGE SALES REPRESENTATIVE Seizures (HCC) (Primary Dx); Vaping nicotine dependence, tobacco product Discharge Disposition: Discharged to home or Selfcare 10/26/2024 Travel 10/17/2024 Refill [facility] Neurology [facility] [address] [place] [address] Aaliyah Vila APRN, CORDAGE SALES REPRESENTATIVE from Last 3 Months Family History Medical History Relation Name Comments Cancer Father THROAT Mitral valve prolapse Mother No Known Problems Sister Relation Name Status Comments Father Mother Sister Alive Social History Tobacco Use Types Packs/Day Years Used Date Smoking Tobacco: Former Cigarettes Smokeless Tobacco: Never Tobacco Cessation:Counseling Given: Not Answered Alcohol Use Standard Drinks/Week Comments Yes 0 (1 standard drink = 0.6 oz pur e alcohol) 9 a yr [facility] Utilities Answer Date Recorded In the past 12 months has th e electric, gas, oil, or water company threatened to shut off services in your home? No 11/05/2024 Social Connection and Isolat ion Panel [NHANES] Answer Date Recorded In a typical week, how many times do you talk on the phone with family, friends, or neighbors? More than three times a week 11/05/2024 How often do you get togethe r with friends or relatives? Twice a week 11/05/2024 How often do you attend chur ch or jewish services? Never 11/05/2024 Do you belong to any clubs o r organizations such as methodist groups, unions, fraternal or athletic groups, or school groups? No 11/05/2024 How often do you attend meet ings of the clubs or organizations you belong to? Never 11/05/2024 Are you , , di vorced, , never , or living with a partner? Living with partner 11/05/2024 AUDIT-C Answer Date Recorded Q1: How often do you have a drink containing alc ohol? Monthly or less 11/05/2024 Q2: How many drinks containi ng alcohol do you have on a typical day when you are drinking? 1 or 2 11/05/2024 Q3: How often do you have si x or more drinks on one occasion? Less than monthly 11/05/2024 Overall Financial Resource Strain (CARDIA) Answe r Date Recorded How hard is it for you to pa y for the very basics like food, housing, medical care, and heating? Not hard at all 11/05/2024 PHQ-2 Answer Date Recorded Total Score - Questions 1-9 1 10/25 [facility] Occupat ional Health - Occupational Stress Questionnaire Answer Date Recorded Do you feel stress - tense, restless, nervous, or anxious, or unable to sleep at night because your mind is troubled all the time - these days? Not at all 11/05/2024 Exercise Vital Sign Answer Date Recorde d On average, how many days pe r week do you engage in moderate to strenuous exercise (like a brisk walk)? 4 days 11/05/2024 On average, how many minutes do you engage in exercise at this level? 90 min 11/05/2024 Hunger Vital Sign Answer Date Recorded Within the past 12 months, y ou worried that your food would run out before you got the money to buy more. Never true 11/06/19 25 Within the past 12 months, t he food you bought just didn't last and you didn't have money to get more. Never true 11/05/2024 PRAPARE - Transportation Answer Date Re corded In the past 12 months, has l ack of transportation kept you from medical appointments or from getting medications? No 10/25 In the past 12 months, has l ack of transportation kept you from meetings, work, or from getting things needed for daily living? No 11/05/2024 Housing Stability Vital Sign Answer Moreno e Recorded In the last 12 months, was t here a time when you were not able to pay the mortgage or rent on time? No 11/05/2024 In the past 12 months, how m any times have you moved where you were living? 0 11/05/2024 At any time in the past 12 m [facility], were you homeless or living in a custodial (including now)? No 11/05/2024 Sexually Active Control Partners Comments Yes Surgical Male Comments Unknown Sex and Gender Information Value Date Recorded Sex Assigned at Female 07/23/2023 4:10 PM GOVERNMENT AFFAIRS SPECIALIST Legal Sex Female 4:09 PM GOVERNMENT AFFAIRS SPECIALIST Gender Identity Female 09/23/2023 8:59 PM GOVERNMENT AFFAIRS SPECIALIST Sexual Orientation Straight 09/23/2023 8: 59 PM GOVERNMENT AFFAIRS SPECIALIST Last Filed Vital Signs Vital Sign Reading Time Taken Comments Blood Pressure 112/74 12/07/2024 10:54 AM CDT Pulse 83 12/07/2024 10:54 AM CDT Temperature 36 C (96.8 F) 12/07/2024 10:54 AM CDT Respiratory Rate 14 12/07/2024 10:54 AM CDT Oxygen Saturation 100% 12/07/2024 10:54 AM CDT Inhaled Oxygen Concentration - - Weight 52.6 kg (116 lb) 12/07/2024 9:10 AM CDT Height 176.5 cm (5' 9.5 ) 12/07/2024 9:10 AM CDT Body Mass Index 16.88 12/07/2024 9:10 AM CDT Plan of Treatment Upcoming Encounters Date Type Department Care Team (Late st Contact Info) Description 01/24/2025 11:00 AM CDT [facility] [place] [address] [place] [id number] Aaliyah Vila, CHIPPER OPERATOR, CORDAGE SALES REPRESENTATIVE [address] [place] [address] 02/08/2025 10:45 AM CDT [facility] - [place] [address] [facility] [facility] [address] [address] Arely Shetty, [facility] [address] [facility] [facility] [place] [address] Health Maintenance Due Date Last Done Comments TdaP Immunization 1995 Pap Smear 06/21/2022 06/21/2019 Cervical Cancer Screening (CCS) 2023 HPV/Cotest 2023 SARS-COV-2 Immunization ( season) 2024 Influenza Immunization (Season Ended) 2025 07/01/2017 Respiratory Syncytial Virus (RSV) Immunization (Adult) (1 - 1-dose 75+ series) 2068 Hepatitis B Immunization Completed 994, 1993, 1993 DTaP/Tdap/Td Immunization Discontinued 2004, 12/07/1997, 10/14/1994, Additional history exists Meningococcal Immunization (ACWY) Aged Out 02/24/2008 No longer eligible based on patient's age to complete this topic Human Papillomavirus (HPV) Immunization Completed 08/29/2008, 02/24/2008 Hepatitis C Virus (HCV) Screening Completed 11/08/2024 Pneumococcal Immunization Combined Aged Out No longer eligible based on patient's age to complete this topic Rotavirus Immunization Aged Out No lo nger eligible based on patient's age to complete this topic Procedures Procedure Name Priority Date/Time Associated Diagnosis Comments COLON CA SCRN NOT HI RSK IND 12/07/2024 9:56 AM CDT COLONOSCOPY - NORMAL COLONOSCOPY Special Needs PREG test - Dx CONSTIPATION, LAST SEIZURE MID 2024, TAKES ANTI SEIZURE MED AND CARRIES NASAL SPRAY TO ADM POST SEIZURE. COLORECTAL SCRN; HI RISK IND 12/07/2024 9:56 AM CDT COLONOSCOPY - NORMAL COLONOSCOPY Special Needs PREG test - Dx CONSTIPATION, LAST SEIZURE MID 2024, TAKES ANTI SEIZURE MED AND CARRIES NASAL SPRAY TO ADM POST SEIZURE. CT COLONOSCOPY FLX DX W/COLLJ SPEC WHEN PFRMD 12/07/2024 9:56 AM CDT COLONOSCOPY - NORMAL COLONOSCOPY Special Needs PREG test - Dx CONSTIPATION, LAST SEIZURE MID 2024, TAKES ANTI SEIZURE MED AND CARRIES NASAL SPRAY TO ADM POST SEIZURE. POCT URINE HCG () Routine 12/07/2024 8:59 AM CDT GI IMAGING - COLONOSCOPY Routine 12/07/2024 8:51 AM CDT CBC WITH AUTO DIFFERENTIAL Today 11/08/2024 9:28 AM CDT Seizures (HCC) Muscle cramps Weight loss, non-intentional Memory deficit LIPID PANEL Routine 11/08/2024 9:28 AM CDT Well adult exam HEMOGLOBIN A1C W/ ESTIMATED GLUCOSE Routine 11/08/2024 9:28 AM CDT Well adult exam HEPATITIS C ANTIBODY Routine 11/08/2024 9:28 AM CDT Need for hepatitis C screening test COMPLETE BLOOD COUNT (CBC) WITH DIFF Today 11/08/2024 9:28 AM CDT Seizures (HCC) Muscle cramps Weight loss, non-intentional Memory deficit CMP (COMPREHENSIVE METABOLIC PANEL) Today 11/08/2024 9:28 AM CDT Seizures (HCC) Muscle cramps Weight loss, non-intentional Memory deficit VITAMIN B12 Today 11/08/2024 9:28 AM CDT Seizures (HCC) Muscle cramps Weight loss, non-intentional Memory deficit MAGNESIUM (MG) Today 11/08/2024 9:28 AM CDT Seizures (HCC) Muscle cramps Weight loss, non-intentional Memory deficit FERRITIN Today 11/08/2024 9:28 AM CDT Seizures (HCC) Muscle cramps Weight loss, non-intentional Memory deficit THYROID STIMULATING HORMONE (TSH) Today 11/08/2024 9:28 AM CDT Seizures (HCC) Muscle cramps Weight loss, non-intentional Memory deficit XR ABDOMEN KUB FLAT PLATE Routine 11/08/2024 9:13 AM CDT Weight loss from Last 3 Months Results * POCT Urine HCG () (12/07/2024 8:59 AM CDT) Pathologist [facility] POC URINE Negative POC URINE CONTROL Protein Purification Scientist Pass Urine 12/07/2024 8:59 AM CDT Michael Maldonado MD POINT OF CARE TESTING (MAN UAL) Final Result * GI IMAGING - COLONOSCOPY (12/07/2024 8:51 AM CDT) us Michael Maldonado MD IMG DIAGNOSTIC ORDERABLES Final Result * HEMOGLOBIN A1C W/ ESTIMATED GLUCOSE (11/08/2024 9:28 AM CDT) Pathologist [facility] HGB-A1C 5.0 4.0 - 6.0 % 11/08/2024 10:02 AM CDT [facility] Est Average Glucose 96.8 mg/dL 11/08/2024 10:02 AM CDT [facility] Blood Venipuncture / Unknown 11/08/2024 9:28 AM CDT 11/08/2024 9:41 AM CDT Narrative [facility] - 11/08/2024 10:02 AM CDT HEMOGLOBIN A1C: DIABETIC PATIENTS: WELL-CONTROLLED: 6.2 - 7.0 INTERMEDIATE WELL-CONTROLLED: 7.0 - 9.0 POORLY-CONTROLLED: >9.0 Specimens containing greater than 5% of Hemoglobin F may result in lower than expected % HbA1C results. Arely Shetty PAC CHEMISTRY ORDERAB LES Final Result [facility] [address] [place] [address] * (ABNORMAL) CBC WITH AUTO DIFFERENTIAL (11/08/2024 9:28 AM CDT) WBC 3.80(L) 4.00 - 12.00 10(3)/mcL 11/08/2024 9:43 AM CDT [facility] RBC 5.09 3.80 - 5.30 10(6)/mcL 11/08/2024 9:43 AM CDT [facility] HEMOGLOBIN (HGB) 13.9 12.0 - 15.8 g/dL 11/08/2024 9:43 AM CDT [facility] HEMATOCRIT (HCT) 43.2 36.0 - 47.0 % 11/08/2024 9:43 AM CDT [facility] MCV 84.9 82.0 - 96.0 fL 11/08/2024 9:43 AM CDT [facility] MCH 27.3 26.0 - 34.0 pg 11/08/2024 9:43 AM CDT [facility] MCHC 32.2 31.0 - 36.0 g/dL 11/08/2024 9:43 AM CDT [facility] PLATELET COUNT 197 140 - 440 10(3)/mcL 11/08/2024 9:43 AM CDT [facility] RDW 13.2 11.8 - 15.5 % 11/08/2024 9:43 AM CDT [facility] MPV 11.2 9.7 - 12.4 fL 11/08/2024 9:43 AM CDT [facility] NEUTROPHILS 59.8 47.0 - 73.0 % 11/08/2024 9:43 AM CDT [facility] LYMPHOCYTES 30.0 18.0 - 42.0 % 11/08/2024 9:43 AM CDT [facility] MONOCYTES 9.7 4.0 - 12.0 % 11/08/2024 9:43 AM CDT [facility] EOSINOPHILS 0.0 0.0 - 5.0 % 11/08/2024 9:43 AM CDT [facility] BASOPHILS 0.5 0.0 - 1.0 % 11/08/2024 9:43 AM CDT [facility] ABSOLUTE NEUTROPHILS 2.27 1.60 - 7.70 10(3)/mcL 11/08/2024 9:43 AM CDT [facility] ABSOLUTE LYMPHOCYTES 1.14(L) 1.30 - 3.20 10(3)/[facility] 11/08/2024 9:43 AM CDT [facility] ABSOLUTE MONOCYTES 0.37 0.20 - 1.00 10(3)/[facility] 11/08/2024 9:43 AM CDT [facility] ABSOLUTE EOSINOPHIL 0.00 0.00 - 0.40 10(3)/[facility] 11/08/2024 9:43 AM CDT [facility] ABSOLUTE BASOPHILS 0.02 0.00 - 0.10 10(3)/[facility] 11/08/2024 9:43 AM CDT [facility] NRBC PER 100 WBC 0 11/09/19 9:43 AM CDT [facility] Blood Venipuncture / Unknown 11/08/2024 9:28 AM CDT 11/08/2024 9:41 AM CDT us Aaliyah Vila CHIPPER OPERATOR, CORDAGE SALES REPRESENTATIVE HEMATOLOGY ORDERABLE S Final Result [facility] [address] [place] [address] * VITAMIN B12 (11/08/2024 9:28 AM CDT) Pathologist [facility] VITAMIN B12 354 213 - 816 pg/mL 11/08/2024 10:53 AM CDT [facility] Blood Venipuncture / Unknown 11/08/2024 9:28 AM CDT 11/08/2024 9:41 AM CDT us Aaliyah Vila APRN, CORDAGE SALES REPRESENTATIVE CHEMISTRY ORDERABLES Final Result [facility] [address] [place] [address] * THYROID STIMULATING HORMONE (TSH) (11/08/2024 9:28 AM CDT) Pathologist [facility] TSH 1.394 0.300 - 5.000 mIU/L 11/08/2024 10:31 AM CDT [facility] Blood Venipuncture / Unknown 11/08/2024 9:28 AM CDT 11/08/2024 9:41 AM CDT us Aaliyah Vila APRN, CORDAGE SALES REPRESENTATIVE CHEMISTRY ORDERABLES Final Result Performing Organization Address City/[facility]/ZIP Co de Phone Number [facility] [address] [place] [address] * MAGNESIUM (MG) (11/08/2024 9:28 AM CDT) Pathologist [facility] MAGNESIUM 2.0 1.6 - 2.6 mg/dL 11/08/2024 10:09 AM CDT [facility] Blood Venipuncture / Unknown 11/08/2024 9:28 AM CDT 11/08/2024 9:41 AM CDT us Aaliyah Vila APRN, CORDAGE SALES REPRESENTATIVE CHEMISTRY ORDERABLES Final Result [facility] [address] [place] [address] * (ABNORMAL) LIPID PANEL (11/08/2024 9:28 AM CDT) Pathologist [facility] CHOLESTEROL 112 <200 mg/dL 11/08/2024 10:09 AM CDT [facility] TRIGLYCERIDES 43 <150 mg/dL 11/08/2024 10:09 AM CDT [facility] HDL CHOLESTEROL 48 >40 mg/dL 10:09 AM CDT [facility] LDL 55 <130 mg/dL 11/08/2024 10:09 AM CDT [facility] VLDL 9(L) 10 - 50 mg/dL 11/08/2024 10:09 AM CDT [facility] CHOL/HDL RATIO 2.3 0.0 - 4.4 11/08/2024 10:09 AM CDT [facility] NON-HDL CHOLESTEROL 64 <130 mg/dL 11/08/2024 10:09 AM CDT [facility] IS THE PATIENT REQUIRED TO BE FASTING? Yes 11/08/2024 10:09 AM CDT [facility] HAS THE PATIENT BEEN FASTING? Yes 11/08/2024 10:09 AM CDT [facility] Blood Venipuncture / Unknown 11/08/2024 9:28 AM CDT 11/08/2024 9:41 AM CDT Arely Shetty PAC CHEMISTRY ORDERAB LES Final Result [facility] [address] [place] [address] * HEPATITIS C ANTIBODY (11/08/2024 9:28 AM CDT) [facility] hepatitis C antibody 0.12 <1 S/CO 11/08/2024 5:19 PM CDT [facility] Comment: Signal/Cutoff ratio < 0.79 is Nondetected Signal/Cutoff ratio 0.80-0.99 is Grayzone Signal/Cutoff ratio > 0.99 is Detected Supplemental assays are recommended if signal/cutoff ratio is >/=1.00. Signal/cutoff ratio result >/= 5.00 is 97% predictive of positivity for recombinant immunoblot assay (RIBA) and will be reported to the [place] Department of Public [facility] as required. Blood Venipuncture / Unknown 11/08/2024 9:28 AM CDT 11/08/2024 9:41 AM CDT Arely Shetty PAC CHEMISTRY ORDERAB LES Final Result [facility] [address] [place] [address], * FERRITIN (11/08/2024 9:28 AM CDT) Pathologist [facility] FERRITIN 11 5 - 204 ng/mL 11/08/2024 10:31 AM CDT [facility] Blood Venipuncture / Unknown 11/08/2024 9:28 AM CDT 11/08/2024 9:41 AM CDT Aaliyah Vila CHIPPER OPERATOR, CORDAGE SALES REPRESENTATIVE CHEMISTRY ORDERABLES Final Result [facility] [address] [place] [address] * (ABNORMAL) CMP (COMPREHENSIVE METABOLIC PANEL) (11/08/2024 9:28 AM CDT) Pathologist [facility] SODIUM 138 136 - 145 mmol/L 11/08/2024 10:09 AM CDT [facility] POTASSIUM 4.3 3.5 - 5.1 mmol/L 11/08/2024 10:09 AM CDT [facility] CHLORIDE 109(H) 98 - 107 mmol/L 11/08/2024 10:09 AM CDT [facility] CO2, VENOUS 22 22 - 30 mmol/L 11/08/2024 10:09 AM CDT [facility] ANION GAP 11.3 <18.0 mmol/L 11/08/2024 10:09 AM [facility] GLUCOSE 92 70 - 99 mg/dL 11/08/2024 10:09 AM [facility] BUN 5 5 - 18 mg/dL 11/08/2024 10:09 AM [facility] CREATININE, BLOOD 0.75 0.60 - 1.00 mg/dL 11/08/2024 10:09 AM [facility] BUN/CREATININE RATIO 7(L) 12 - 20 ratio 11/08/2024 10:09 AM [facility] TOTAL PROTEIN 7.3 6.0 - 8.0 g/dL 11/08/2024 10:09 AM [facility] ALBUMIN 4.2 3.5 - 5.0 g/dL 11/08/2024 10:09 AM [facility] A/G RATIO 1.4 1.0 - 2.2 11/08/2024 10:09 AM [facility] CALCIUM 8.8 8.7 - 10.5 mg/dL 11/08/2024 10:09 AM [facility] T BILI 0.4 0.2 - 1.2 mg/dL 11/08/2024 10:09 AM [facility] SGOT (AST) 21 <43 U/L 11/08/2024 10:09 AM [facility] SGPT (ALT) 11 <56 U/L 11/08/2024 10:09 AM [facility] ALKALINE PHOSPHATASE 63 40 - 150 U/L 11/08/2024 10:09 AM [facility] IS THE PATIENT REQUIRED TO BE FASTING? No 11/08/2024 10:09 AM [facility] GFR, ESTIMATED >60 >=60 11/08/2024 10:09 AM [facility] Comment: Creatinine Clearance is the preferred criteria for selecting drug dose adjustments in renally impaired patients. The GFR is provided as additional pertinent clinical information. GFR is reported in mL/min/1.73 sq m. Calculation based on the Chronic Kidney Disease Epidemiology Collaboration (CKD- EPI) equation refit without adjustment for race. GFR, EST. >60 >=60 025 10:09 AM CDT [facility] GFR, EST. NONAFRICAN >60 >=60 11/08/2024 10:09 AM CDT [facility] Blood Venipuncture / Unknown 11/08/2024 9:28 AM CDT 11/08/2024 9:41 AM CDT us Aaliyah Vila CHIPPER OPERATOR, CORDAGE SALES REPRESENTATIVE CHEMISTRY ORDERABLES Final Result [facility] [address] [place] [address] * XR ABDOMEN KUB FLAT PLATE (11/08/2024 9:13 AM CDT) Anatomical Region Laterality Modality Abdomen N/A Digital Radiogra phy 11/09/2024 2:53 PM CDT Impressions 11/09/2024 2:56 PM CDT IMPRESSION: Moderate appearing stool burden. Mild gaseous distention of the sigmoid colon. Narrative 11/09/2024 2:56 PM CDT EXAM DESCRIPTION: XR ABDOMEN KUB FLAT PLATE REASON FOR STUDY: F/U chronic abdominal pain, constipation x 10 years. Pt states she was Dx with diverticulitis. Last BM was 2 days ago, pt states she only has BM once a week. denies vomiting. denies symptoms getting worse. TECHNIQUE: 1 radiographic view of the abdomen. 2 images COMPARISON: None available FINDINGS: Visualized lungs are clear. Cholecystectomy clips are present. No aggressive bone lesion or acute fracture is seen grossly. There is a grossly moderate stool burden. There is mild gaseous distention of the sigmoid colon. No small bowel dilatation is seen. No suspicious calcifications are seen. THIS IS AN ELECTRONICALLY VERIFIED FINAL REPORT 11/09/2024 2:53 PM - Electronically signed by Vince Negron M.D. MZ: ROBINSON Report ID: [id number] Reading Location: [id number] Procedure Note Vince Negron MD - 11/09/2024 EXAM DESCRIPTION: XR ABDOMEN KUB FLAT PLATE REASON FOR STUDY: F/U chronic abdominal pain, constipation x 10 years. Pt states she was Dx with diverticulitis. Last BM was 2 days ago, pt states she only has BM once a week. denies vomiting. denies symptoms getting worse. TECHNIQUE: 1 radiographic view of the abdomen. 2 images COMPARISON: None available FINDINGS: Visualized lungs are clear. Cholecystectomy clips are present. No aggressive bone lesion or acute fracture is seen grossly. There is a grossly moderate stool burden. There is mild gaseous distention of the sigmoid colon. No small bowel dilatation is seen. No suspicious calcifications are seen. THIS IS AN ELECTRONICALLY VERIFIED FINAL REPORT 11/09/2024 2:53 PM - Electronically signed by Vince Negron M.D. MZ: ROBINSON Report ID: [id number] Reading Location: [id number] IMPRESSION: Moderate appearing stool burden. Mild gaseous distention of the sigmoid colon. Resu
--- OUTSIDE RECORDS SUMMARY | 2024-12-11 16:57 | XMS_ITS | Clinical Summary ---
Author Organization [facility] Address [address] [place] [address] Care Team Providers Care Lead Software Engineer Name Role Phone Rachel Burgos MD Unavailable Source Comments [facility],non-owned Affiliates and Associated Physician Practices is amultiple site organization consisting of ambulatory clinics and hospital sitesin [place], [place], [place] and [place]. This disclosure is being madepursuant to the Care Everywhere program and may not contain all information available regarding this patient. Last updated 18.[facility] Allergies Active Allergy Reactions Criticality Noted Date [...] care, and heating? Not very hard 02/29/2024 [facility] [place] [facility] of Occupat ional Health - Occupational Stress [...] place to sleep or slept in a penitentiary (including now)? No 02/29/2024 Comments No Sex and Gender Information Value Date Recorded Sex Assigned at Not on file Legal Sex Female 6:59 AM CONTROL SYSTEMS SPECIALIST Gender Identity Not on file Sexual Orientation [...] 02/13/2022 1:50 PM CDT [facility] Blood BLOOD SPECIMEN / Unknown Venipuncture / Unknown 02/13/2022 11:44 AM CDT 02/13/2022 12:04 PM CDT Narrative [facility] - 02/13/2022 1:50 PM CDT No Laboratory evidence of HIV infection. Kishore Sow MD LAB - CHEMISTRY ORDERABLES Merry l Result Performing Organization Address City/State/[facility] Co de Phone Number [facility] [address] [place] [address] from Last 3 Months or Most Recently Relevant to Health Maintenance Insurance [facility] MEDICAID TPL THIRD REPUBLICAN LIABILITY Republican Liability TPL THIRD REPUBLICAN LIABILITY Advance Directives * Full Code (Latest Code Status on File) Date Activated Date Inactivated Comments 02/29/2024 10:48 AM 03/05/2024 5:03 PM * Full Code Date Activated Date Inactivated Comments 06/30/2017 8:20 PM 07/03/2017 3:28 PM Care Teams Lead Software Engineer Relationship Specialty Start Date End Date Rachel Burgos MD [address] [facility] [address] [place] [address] PCP - OBGYN Obstetrics and Gynecology 09/26/15
--- OUTSIDE RECORDS SUMMARY | 2024-12-11 16:58 | XMS_ITS | Clinical Summary ---
Author Organization [facility] Address [address] [place] [address] Phone Care Team Providers Care Validation Architect Name Role Phone Aaliyah Vila APRN, INTERNAL CONTROL CONSULTANT Unavailable [phone] Arely Shetty PAC Primary Care Pro vider Gladis Hawley APRN, [place] Unavailable Allergies Active Allergy Reactions Criticality Noted [...] Description 12/07/2024 9:55 AM CDT [facility] [address] [place] [address] Gilberto Gooden APRN, KEZIA 12/07/2024 9:30 AM CDT - 12/07/2024 10:00 AM CDT [facility] [address] [place] [address] Michael Maldonado MD COLONOSCOPY - NORMAL COLONOSCOPY 12/07/2024 8:55 AM CDT Ancillary Procedure [facility] Main [address] [place] [address] Michael Maldonado MD 12/07/2024 8:48 AM CDT - 12/07/2024 11:19 AM CDT [facility]Pacu [facility] [address] [place] [address] Michael Maldonado MD Constipation Discharge Disposition: Discharged to home or Selfcare 12/07/2024 Travel 11/23/2024 Travel 11/21/2024 10:00 AM CDT [facility] [place] [address] [place] [address] Gladis Hawley APRN, DIMPLE LLQ pain (Primary Dx); Constipation, unspecified constipation type Discharge Disposition: Discharged to home or Selfcare 11/21/2024 [facility]phone [facility] [place] [address] [place] [address] Michael Maldonado MD 11/21/2024 Telephone [facility] - Gastroenterology - [place] [address] [place] [address] Gladis Hawley APRN, CNP 11/20/2024 Travel 11/09/2024 Results Follow-Up [facility] Internal Medicine - [place] [address] [place] [phone] Arely Shetty, HERNANDO XR ABDOMEN KUB FLAT PLATE 11/09/2024 Results Follow-Up [facility] Internal Medicine - [place] [address] [place] [address] Arely Shetty, HERNANDO HEPATITIS C ANTIBODY, HEMOGLOBIN A1C W/ ESTIMATED GLUCOSE, LIPID PANEL 11/08/2024 8:38 AM CDT - 11/08/2024 11:59 PM CDT Hospital Encounter [facility] Diagnostic Radiology [address] [place] [phone] Arely Shetty, HERNANDO Discharge Disposition: Discharged to home or Selfcare 11/08/2024 Results Follow-Up [facility] Primary Care [facility] [address] [place] [phone] Arely Shetty, HERNANDO THYROID STIMULATING HORMONE (TSH), CMP (COMPREHENSIVE METABOLIC PANEL), CBC WITH AUTO DIFFERENTIAL, Additional followed-up results: 3 11/07/2024 11:15 AM CDT Office Visit [facility] Internal Medicine [facility] [address] [place] [phone] Arely Shetty, PAC Weight loss (Primary Dx); Seizures (HCC); Need for hepatitis C screening test; Well adult exam; Constipation, unspecified constipation type Discharge Disposition: Discharged to home or Selfcare 11/07/2024 Travel 11/05/2024 Travel 10/26/2024 11:30 AM CDT Office Visit [facility] [address] [place] [phone] Aaliyah Vila APRN, INTERNAL CONTROL CONSULTANT Seizures (HCC) (Primary Dx); Vaping nicotine dependence, tobacco product Discharge Disposition: Discharged to home or Selfcare 10/26/2024 Travel 10/17/2024 Refill [facility] [address] [place] [phone] Aaliyah Vila, GENERAL SCRAP WORKER, INTERNAL CONTROL CONSULTANT from Last 3 Months Family History Medical [...] oz pur e alcohol) 9 a yr [facility] Utilities Answer Date Recorded In the past 12 months has e electric, gas, oil, or water company [...] often do you attend chur ch or adventist services? Never 11/05/2024 Do you belong to any clubs o r organizations such as episcopal groups, unions, fraternal or athletic groups, or [...] Total Score - Questions 1-9 1 10/25 [facility] [place] of Occupat ional Health - Occupational Stress [...] any time in the past 12 m [facility], were you homeless or living in a skilled nursing (including now)? 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 Sexual Orientation Straight 09/23/2023 8: 59 PM [employer] COMPANY FLATBED TRUCK DRIVER Last Filed Vital Signs Vital Sign Reading [...] Description 01/24/2025 11:00 AM CDT Office Visit [facility] - [facility]rology - [place] [address] [place] [phone] Aaliyah Vila, ALFONSO, INTERNAL CONTROL CONSULTANT [address] [place] [address] 02/08/2025 10:45 AM CDT Office Visit [facility] - Internal Medicine - [place] [address] [place] [address] Arely Shetty, [facility] [address] [facility] [place] [address] Health Maintenance Due Date Last Done Comments [...] CARRIES NASAL SPRAY TO ADM POST SEIZURE. MT COLONOSCOPY FLX DX W/COLLJ SPEC WHEN PFRMD [...] HCG () (12/07/2024 8:59 AM CDT) Pathologist [facility] POC URINE Negative POC URINE CONTROL [facility] Counselor Pass Urine 12/07/2024 8:59 AM CDT us Michael Maldonado MD POINT OF CARE TESTING (MAN UAL) Final Result * GI IMAGING - COLONOSCOPY (12/07/2024 8:51 AM CDT) us Michael Maldonado MD IMG DIAGNOSTIC ORDERABLES Final Result * HEMOGLOBIN A1C W/ ESTIMATED GLUCOSE (11/08/2024 9:28 AM CDT) HGB-A1C 5.0 4.0 - 6.0 % 11/08/2024 10:02 AM CDT [facility] Est Average Glucose 96.8 mg/dL 11/08/2024 10:02 AM CDT [facility] Blood Venipuncture / Unknown 11/08/2024 9:28 AM CDT 11/08/2024 9:41 AM CDT Narrative [facility] - 11/08/2024 10:02 AM CDT HEMOGLOBIN A1C: DIABETIC PATIENTS: WELL-CONTROLLED: 6.2 - 7.0 INTERMEDIATE WELL-CONTROLLED: 7.0 - 9.0 POORLY-CONTROLLED: >9.0 Specimens containing greater than 5% of Hemoglobin F may result in lower than expected % HbA1C results. Arely Shetty PAC CHEMISTRY ORDERAB LES Final Result [facility] [address] [place] [address] * (ABNORMAL) CBC WITH AUTO DIFFERENTIAL (11/08/2024 9:28 AM CDT) WBC 3.80(L) 4.00 - 12.00 10(3)/mcL 11/08/2024 9:43 AM CDT [facility] RBC 5.09 3.80 - 5.30 10(6)/mcL 11/08/2024 9:43 AM CDT [facility] HEMOGLOBIN (HGB) 13.9 12.0 - 15.8 g/dL 11/08/2024 9:43 AM CDT [facility] HEMATOCRIT (HCT) 43.2 36.0 - 47.0 % 11/08/2024 9:43 AM CDT [facility] MCV 84.9 82.0 - 96.0 fL 11/08/2024 9:43 AM CDT [facility] MCH 27.3 26.0 - 34.0 pg 11/08/2024 9:43 AM CDT [facility] MCHC 32.2 31.0 - 36.0 g/dL 11/08/2024 9:43 AM CDT [facility] PLATELET COUNT 197 140 - 440 10(3)/mcL 11/08/2024 9:43 AM CDT [facility] RDW 13.2 11.8 - 15.5 % 11/08/2024 9:43 AM CDT [facility] MPV 11.2 9.7 - 12.4 fL 11/08/2024 9:43 AM CDT [facility] NEUTROPHILS 59.8 47.0 - 73.0 % 11/08/2024 9:43 AM CDT [facility] LYMPHOCYTES 30.0 18.0 - 42.0 % 11/08/2024 9:43 AM CDT [facility] MONOCYTES 9.7 4.0 - 12.0 % 11/08/2024 9:43 AM CDT [facility] EOSINOPHILS 0.0 0.0 - 5.0 % 11/08/2024 9:43 AM CDT [facility] BASOPHILS 0.5 0.0 - 1.0 % 11/08/2024 9:43 AM CDT [facility] ABSOLUTE NEUTROPHILS 2.27 1.60 - 7.70 10(3)/[facility] 11/08/2024 9:43 AM CDT [facility] ABSOLUTE LYMPHOCYTES 1.14(L) 1.30 - 3.20 10(3)/[facility] 11/08/2024 9:43 AM [facility] ABSOLUTE MONOCYTES 0.37 0.20 - 1.00 10(3)/[facility] 11/08/2024 9:43 AM CDT [facility] ABSOLUTE EOSINOPHIL 0.00 0.00 - 0.40 10(3)/[facility] 11/08/2024 9:43 AM CDT [facility] ABSOLUTE BASOPHILS 0.02 0.00 - 0.10 10(3)/[facility] 11/08/2024 9:43 AM CDT [facility] NRBC PER 100 WBC 0 11/09/19 9:43 AM [facility] Blood Venipuncture / Unknown 11/08/2024 9:28 AM CDT 11/08/2024 9:41 AM CDT Aaliyah Vila APRN, INTERNAL CONTROL CONSULTANT HEMATOLOGY ORDERABLE S Final Result [facility] [address] [place] [address] * VITAMIN B12 (11/08/2024 9:28 AM CDT) VITAMIN B12 354 213 - 816 pg/mL 11/08/2024 10:53 AM CDT [facility] Blood Venipuncture / Unknown 11/08/2024 9:28 AM CDT 11/08/2024 9:41 AM CDT us Aaliyah Vila APRN, INTERNAL CONTROL CONSULTANT CHEMISTRY ORDERABLES Final Result Performing Organization Address City/[facility] [[email or web address]] Co de Phone Number [facility] [address] [place] [address] * THYROID STIMULATING HORMONE (TSH) (11/08/2024 9:28 AM CDT) TSH 1.394 0.300 - 5.000 mIU/L 11/08/2024 10:31 AM CDT [facility] Blood Venipuncture / Unknown 11/08/2024 9:28 AM CDT 11/08/2024 9:41 AM CDT Aaliyah iVla APRN, INTERNAL CONTROL CONSULTANT CHEMISTRY ORDERABLES Final Result Performing Organization Address City/[facility]/ZIP Co de Phone Number [facility] [address] [place] [address] * MAGNESIUM (MG) (11/08/2024 9:28 AM CDT) MAGNESIUM 2.0 1.6 - 2.6 mg/dL 11/08/2024 10:09 AM CDT [facility] Blood Venipuncture / Unknown 11/08/2024 9:28 AM CDT 11/08/2024 9:41 AM CDT us Aaliyah Vila GENERAL SCRAP WORKER, INTERNAL CONTROL CONSULTANT CHEMISTRY ORDERABLES Final Result [facility] [address] [place] [address] * (ABNORMAL) LIPID PANEL (11/08/2024 9:28 AM CDT) CHOLESTEROL 112 <200 mg/dL 11/08/2024 10:09 AM CDT [facility] TRIGLYCERIDES 43 <150 mg/dL 11/08/2024 10:09 AM CDT [facility] HDL CHOLESTEROL 48 >40 mg/dL 10:09 AM CDT [facility] LDL 55 <130 mg/dL 11/08/2024 10:09 AM CDT [facility] VLDL 9(L) 10 - 50 mg/dL 11/08/2024 10:09 AM CDT [facility] CHOL/HDL RATIO 2.3 0.0 - 4.4 11/08/2024 10:09 AM CDT [facility] NON-HDL CHOLESTEROL 64 <130 mg/dL 11/08/2024 10:09 AM CDT [facility] IS THE PATIENT REQUIRED TO BE FASTING? Yes 11/08/2024 10:09 AM CDT [facility] HAS THE PATIENT BEEN FASTING? Yes 11/08/2024 10:09 AM CDT [facility] Blood Venipuncture / Unknown 11/08/2024 9:28 AM CDT 11/08/2024 9:41 AM CDT us Arely Shetty PAC CHEMISTRY ORDERAB LES Final Result [facility] [address] [place] [address] * HEPATITIS C ANTIBODY (11/08/2024 9:28 AM CDT) Pathologist [facility] hepatitis C antibody 0.12 <1 S/CO 11/08/2024 5:19 PM CDT [facility] Comment: Signal/Cutoff ratio < 0.79 is Nondetected Signal/Cutoff ratio 0.80-0.99 is Grayzone Signal/Cutoff ratio > 0.99 is Detected Supplemental assays are recommended if signal/cutoff ratio is >/=1.00. Signal/cutoff ratio result >/= 5.00 is 97% predictive of positivity for recombinant immunoblot assay (RIBA) and will be reported to the [place] Department of Public Health as required. Blood Venipuncture / Unknown 11/08/2024 9:28 AM CDT 11/08/2024 9:41 AM CDT Arely Shetty PAC CHEMISTRY ORDERAB LES Final Result [facility] [address] [place] [address], * FERRITIN (11/08/2024 9:28 AM CDT) [facility] FERRITIN 11 5 - 204 ng/mL 11/08/2024 10:31 AM CDT [facility] Blood Venipuncture / Unknown 11/08/2024 9:28 AM CDT 11/08/2024 9:41 AM CDT Aaliyah Vila GENERAL SCRAP WORKER, INTERNAL CONTROL CONSULTANT CHEMISTRY ORDERABLES Final Result [facility] [address] [place] [address] * (ABNORMAL) CMP (COMPREHENSIVE METABOLIC PANEL) (11/08/2024 9:28 AM CDT) [facility] SODIUM 138 136 - 145 mmol/L 11/08/2024 10:09 AM CDT [facility] POTASSIUM 4.3 3.5 - 5.1 mmol/L 11/08/2024 10:09 AM T [facility] CHLORIDE 109(H) 98 - 107 mmol/L 11/08/2024 10:09 AM T [facility] CO2, VENOUS 22 22 - 30 mmol/L 11/08/2024 10:09 AM T [facility] ANION GAP 11.3 <18.0 mmol/L 11/08/2024 10:09 AM CDT [facility] GLUCOSE 92 70 - 99 mg/dL 11/08/2024 10:09 AM CDT [facility] BUN 5 5 - 18 mg/dL 11/08/2024 10:09 AM T [facility] CREATININE, BLOOD 0.75 0.60 - 1.00 mg/dL 11/08/2024 10:09 AM T [facility] BUN/CREATININE RATIO 7(L) 12 - 20 ratio 11/08/2024 10:09 AM T [facility] TOTAL PROTEIN 7.3 6.0 - 8.0 g/dL 11/08/2024 10:09 AM T [facility] ALBUMIN 4.2 3.5 - 5.0 g/dL 11/08/2024 10:09 AM [facility] A/G RATIO 1.4 1.0 - 2.2 11/08/2024 10:09 AM [facility] CALCIUM 8.8 8.7 - 10.5 mg/dL 11/08/2024 10:09 AM T [facility] T BILI 0.4 0.2 - 1.2 mg/dL 11/08/2024 10:09 AM CDT [facility] SGOT (AST) 21 <43 U/L 11/08/2024 10:09 AM T [facility] SGPT (ALT) 11 <56 U/L 11/08/2024 10:09 AM T [facility] ALKALINE PHOSPHATASE 63 40 - 150 U/L 11/08/2024 10:09 AM CDT [facility] IS THE PATIENT REQUIRED TO BE FASTING? No 11/08/2024 10:09 AM CDT [facility] GFR, ESTIMATED >60 >=60 11/08/2024 10:09 AM CDT [facility] Comment: Creatinine Clearance is the preferred criteria for selecting drug dose adjustments in renally impaired patients. The GFR is provided as additional pertinent clinical information. GFR is reported in mL/min/1.73 sq m. Calculation based on the Chronic Kidney Disease Epidemiology Collaboration (CKD- EPI) equation refit without adjustment for race. GFR, EST. >60 >=60 025 10:09 AM CDT [facility] GFR, EST. NONAFRICAN >60 >=60 11/08/2024 10:09 AM CDT [facility] Blood Venipuncture / Unknown 11/08/2024 9:28 AM CDT 11/08/2024 9:41 AM CDT us Aaliyah Vila GENERAL SCRAP WORKER, INTERNAL CONTROL CONSULTANT CHEMISTRY ORDERABLES Final Result [facility] [address] [place] [address] * XR ABDOMEN KUB FLAT PLATE (11/08/2024 [...] Electronically signed by Vince Negron M.D. MZ: MZ Report ID: [id number] Reading Location: [id number] Procedure Note Vince Negron MD - 11/09/2024 [...] Electronically signed by Vince Negron M.D. MZ: MZ Report ID: [id number] Reading Location: [id number] IMPRESSION: Moderate appearing stool burden. Mild gaseous distention of the sigmoid colon. Resul [id number]|2024-12-11 16:58:00|2024-12-11 16:57:00|XMS_ITS|[id number]|External Medical Summaries|[id number]|" Encounter Summary Created on: December 11, 2024 Caterina Pike : 1995 Sex: Female Author Organization [facility] Address [address] [place] [address] Care Team Providers Care Validation Architect Name Role Phone Beni Thakkar DO Primary Care Provider [phone] Encounter Details Date Type Department Care Team (Late st Contact Info) Description 11/25/2019 Telephone [facility] Neurology [place] [address] [place] [address] [facility] [place] [phone] [place] [address] [place] [phone] Social History Tobacco Use Types Packs/Day Years [...] on filedocumented in this encounter Care Teams Validation Architect Relationship Specialty Start Date End Date Beni Thakkar DO [address] [place] [address] PCP - General Family Practice 12/17/20 01/22/23 documented as of this encounter "
--- OUTSIDE RECORDS SUMMARY | 2024-12-11 16:58 | XMS_ITS | Clinical Summary ---
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 Endocervical/transformation zone component absent. Age and/or menstrual status not provided PAP INTERP [facility] Comment:Negative for intraep ithelial lesion or malignancy. COMMENT [facility] Comment: This Pap test has been evaluated with computer assisted technology. MORTGAGE ANALYST: [facility] Comment: BEF, CT(ASCP) CT screening location: [place] [address] [place] [address] QUEST RESULT [facility] Comment: Component Name: COMMENT EXPLANATORY NOTE: [...] and current clinical information. Test Performed at: [place] [id number] [place] [address] [employer] Amina Madhu 10/09/2020 Lela Cr MD PATHOLOGY/CYTOLOGY ORDJermaine BARNES Final Result Performing Organization Address City/[facility] Co de Phone Number [facility] [address] [place] [address] * CERV/VAG CYTO AGE BASED SCREEN PAP (10/09/2020 12:00 AM CDT) COMMENT (PAP): [facility] Comment: This order for age-based cervical cancer and STI screening follows ACOG guidelines(PB 168, 140, QXS317). See individual assays for performing site location. Test Performed at: [facility] [address] [place] [address] [employer] Amina Madhu Genital SWAB OF ENDOCERVIX / Unknown 10/09/2020 Lela Cr MD PATHOLOGY/CYTOLOGY ORDJermaine ABRNES Final Result Performing Organization Address City/[facility] Co de Phone Number [facility] [address] [place] [address] from Last 3 Months or Most Recently Relevant to Health Maintenance Insurance [facility] [employer] [employer] MEDICAID RX INFOCROSSING Medicaid Advance Directives For more information, please contact: [phone] * Full Code (Latest Code Status on File) Date Activated Date Inactivated Comments 06/23/2021 11:03 PM 06/25/2021 8:01 PM
--- OUTSIDE RECORDS SUMMARY | 2024-12-11 16:58 | XMS_ITS | Continuity of Care Document ---
Author Organization [facility] Address [address] [place] [address] Phone Care Team Providers Care Chemistry Department Chair Name Role Phone Unavailable Unavailable Unavailable Advance Directives Directive Yes / No Effective Date File Name No Information Encounters Encounter Description Practice Location Reason(s) For Visit Diagnoses Date Provider Providers Copied on Encounter [facility], [address], [place], [place], [id number], tel:[phone] [facility] No Information 201 6 No Information Referring Provider: ARABELLA Sandoval, [address] [place] [address] [address], [place], [address]. tel:[phone] Family History Family Member Type Diagnosis Age At Onset No Information Payers Payer name Insurance type Covered republican ID Authoriza tion(s) No Information Social History Type Description Quantity Date Captured Comments Sex Female Smoking Status No Information Chief Complaint And Reason For Visit No Information History Of Present Illness Encounter Date Complaint History Of Prese nt Illness No Information Instructions Date Instruction Additional Infor mation No Information Assessments Type Assessment Date No Information
[2024-12-11 17:04] VITALS: BP 110/71; PULSE 82; RESP 18; O2SAT 100
[2024-12-11 17:13] VITALS: O2SAT 100
[2024-12-11 17:15] VITALS: O2SAT 100
[2024-12-11 17:18] LABS: Basophils Percent Auto 0.2 % (0.2-1.2); Eosinophils Percent Auto 0.2 % (0-4.4); Hematocrit 40.4 % (37.0-47.0); Hemoglobin 13.3 g/dL (12.0-15.0); Immature Granulocyte Absolute 0.01 K/mm3 (0.00-0.031); Immature Granulocyte Percent A 0.2 % (0-0.5); Lymphocytes Absolute Auto 1.18 K/mm3 (0.9-3.2); Lymphocytes Percent Auto 23.6 % (18.3-44.2); Mean Corpuscular HGB Conc 32.9 g/dl (32-36); Mean Corpuscular Hemoglobin 27.5 pg (26-34); Mean Corpuscular Volume 83.5 fl (80-100); Mean Platelet Volume 10.6 fl (7.4-10.4); Monocytes Absolute Auto 0.4 K/mm3 (0.1-0.6); Monocytes Percent Auto 7.8 % (2.6-8.5); Neutrophils Absolute Auto 3.4 K/mm3 (1.3-6.7); Platelet Count Result 269 k/mm3 (150-375); Red Blood Count 4.84 M/mm3 (4.2-5.4); Red Cell Distribution Width 13.4 % (11.5-14.5)
[2024-12-11 17:25] LABS: Ethanol < 10 mg/dL (<10)
[2024-12-11 17:37] LABS: Alanine Aminotransferase 20 U/L (6-35); Albumin Level 4.5 g/dL (3.5-5.1); Alkaline Phosphatase 64 U/L (38-126); Anion Gap 8 mmol/L (4-12); Aspartate Amino Transferase 30 U/L (14-36); Bilirubin,Total 0.3 mg/dL (0.2-1.3); Blood Urea Nitrogen 7 mg/dL (7-17); Calcium 8.8 mg/dL (8.4-10.2); Carbon Dioxide 27 mmol/L (22-30); Chloride 105 mmol/L (98-107); Creatine Kinase 52 U/L (30-135); Estimated CRCL calculation 76 ml/min; Estimated Glomerular Filt Rate > 60; Glucose 91 mg/dL (65-110); Potassium 3.6 mmol/L (3.4-5.0); Sodium 140 mmol/L (137-145)
[2024-12-11 18:02] LABS: Amphetamine Screen Urine Positive (Negative); Barbiturate Screen Urine Negative (Negative); Benzodiazepines Screen Urine Positive (Negative); Cannabinoid Screen Urine Negative (Negative); Cocaine Screen Urine Negative (Negative); Methadone Screen Urine Negative (Negative); Opiate Screen Urine Negative (Negative); Phencyclidine Screen Urine Negative (Negative)
[2024-12-11 18:17] LABS: Add Urine Microscopic? YES; Appearance Urine Clear (Clear); Bacteria Urine None Seen /hpf; Bilirubin Urine Negative (Negative); Blood Urine Negative (Negative); Color Urine Yellow (Yellow); Glucose Urine UA Negative (Negative); Ketones Urine Negative (Negative); Leukocyte Esterase Ur Negative LEU/UL (Negative); Need Manual Microscopic Reviewed; Nitrate Urine Negative (Negative); Protein Urine 1+ mg/dL (Negative); RBC Urine 0-2 /hpf (0-2); Specific Grav Ur 1.012 (1.001-1.035); Squamous Epithelial Cell Urine None Seen /hpf (Few); Urobilinogen Urine 0.2 mg/dL (<2.0); WBC Urine 0-5 /hpf (0-3); pH Urine 5.5 (5.0-9.0)
--- NOTE | 2024-12-11 18:28 | ED_ITS ---
HPI - Seizure General Chief Complaint: Seizure Stated Complaint: seizure 5-6 minutes Time Seen by Provider: 12/11/24 16:51 History of Present Illness HPI Narrative: Patient is a 29-year-old female who presents ER with seizures. No known history of seizure disorder. Reports today she had a 5 minutes absent seizure and a 5 minute tonic clonic seizure. She received intranasal Versed from her significant other for the [place] seizure. She also had seizures earlier this week. She has been in touch with her Neurology office about having medication changed has not yet heard back from them. She currently takes lacosamide 200 mg twice a day. Denies any drug or alcohol use. No sleep cycle changes. No additional stressors to lower her seizure threshold. She did have a colonoscopy this week and had bowel prep earlier in the week but has had no issues since the colonoscopy. Seizure History: Yes Related Data Allergies Allergy/AdvReac Type Severity Reaction Status Date / Time levetiracetam (From Keppra) Allergy Nausea and Verified 12/11/24 15:21 Vomiting lorazepam (From Ativan) Allergy Chest Pain Verified 12/11/24 15:21 [facility] Past Medical History Medical History Seizure Exam 2 Narrative: GENERAL: Well-appearing, well-nourished, and in no acute distress. HEAD: Normocephalic, atraumatic. EYES: PERRL and EOMI. ENT: Mucous membranes moist. No tongue biting. CHEST: Clear to auscultation. No respiratory distress. HEART: Regular rate and rhythm. Normal peripheral pulses. ABDOMEN: Soft, nontender, nondistended. EXTREMITIES: Normal range of motion. No edema. SKIN: Warm, dry, no rash. NEURO: Alert and oriented x3. PSYCH: Normal mood and affect. Course Course Emergency Course: Patient resting comfortably. Eating and drinking. Discussed with Dr. Brown with neurology at [facility]. Recommends starting depakote 250mg BID in addition to the lacosamide. F/u in clinic. Pt agreeable to plan. Vital Signs Vital signs: Vital Signs Temperature 98.1 F 12/11/24 15:22 Pulse Rate 104 H 12/11/24 15:22 Respiratory Rate 16 12/11/24 15:22 Blood Pressure 108/68 12/11/24 15:22 Pulse Oximetry 100 12/11/24 15:22 Oxygen Delivery Room Air 12/11/24 15:22 Temperature 98.1 F 12/11/24 15:22 Pulse Rate 82 12/11/24 17:04 Respiratory Rate 18 12/11/24 17:04 Blood Pressure 110/71 12/11/24 17:04 Pulse Oximetry 100 12/11/24 17:15 Oxygen Delivery Room Air 12/11/24 17:15 MDM - Seizure Lab Data 12/11/24 17:11 12/11/24 17:11 Labs: Lab Results 12/11/24 12/11/24 Range/Units 17:11 17:40 WBC 5.0 (4.5-10.0) K/mm3 RBC 4.84 (4.2-5.4) M/mm3 Hgb 13.3 (12.0-15.0) g/dL Hct 40.4 (37.0-47.0) % MCV 83.5 (80-100) fl MCH 27.5 (26-34) pg MCHC 32.9 (32-36) g/dl RDW 13.4 (11.5-14.5) % Plt Count 269 (150-375) k/mm3 MPV 10.6 H (7.4-10.4) fl Immature Gran % (Auto) 0.2 (0-0.5) % Neut % (Auto) 68.0 (45.5-73.1) % Lymph % (Auto) 23.6 (18.3-44.2) % [place] % (Auto) 7.8 (2.6-8.5) % Eos % (Auto) 0.2 (0-4.4) % Baso % (Auto) 0.2 (0.2-1.2) % Lymph # (Auto) 1.18 (0.9-3.2) K/mm3 [place] # (Auto) 0.4 (0.1-0.6) K/mm3 Eos # (Auto) 0.0 (0-0.3) K/mm3 Baso # (Auto) 0.0 (0.0-0.1) K/mm3 Abs Immat Gran (auto) 0.01 (0.00-0.031) K/mm3 Absolute Neuts (auto) 3.4 (1.3-6.7) K/mm3 Absolute Nucleated RBC 0.000 (0.0-0.012) K/mm3 Nucleated RBC % 0.0 (0.0-0.2) % Sodium 140 (137-145) mmol/L Potassium 3.6 (3.4-5.0) mmol/L Chloride 105 (98-107) mmol/L Carbon Dioxide 27 (22-30) mmol/L Anion Gap 8 (4-12) mmol/L BUN 7 (7-17) mg/dL Creatinine 0.77 (0.7-1.0) mg/dL Estim Creat Clear Calc 76 ml/min Estimated GFR > 60 (59 - ) Glucose 91 (65-110) mg/dL Calcium 8.8 (8.4-10.2) mg/dL Total Bilirubin 0.3 (0.2-1.3) mg/dL AST 30 (14-36) U/L ALT 20 (6-35) U/L Alkaline Phosphatase 64 (38-126) U/L Total Creatine Kinase 52 (30-135) U/L Total Protein 8.0 (6.3-8.2) g/dL Albumin 4.5 (3.5-5.1) g/dL Urine Color Yellow (Yellow) Urine Appearance Clear (Clear) Urine pH 5.5 (5.0-9.0) Ur Specific [place] 1.012 (1.001-1.035) Urine Protein 1+ H (Negative) mg/dL Urine Glucose (UA) Negative (Negative) mg/dL Urine Ketones Negative (Negative) mg/dL Ur Blood (Man) Negative (Negative) Urine Nitrate Negative (Negative) Urine Bilirubin Negative (Negative) Urine Urobilinogen 0.2 (<2.0) mg/dL Add Ur Microanalysis Reviewed Leukocyte Esterase Rfl Negative (Negative) SUNSHINE/UL Urine RBC 0-2 (0-2) /hpf Urine WBC 0-5 (0-3) /hpf Ur Squamous Epith Cells None seen (Few) /hpf Urine Bacteria None seen /hpf Urine Casts 3-5 Urine Opiates Screen Negative (Negative) Urine Methadone Screen Negative (Negative) Ur Barbiturates Screen Negative (Negative) Ur Phencyclidine Scrn Negative (Negative) Ur Amphetamine Screen Positive A (Negative) U Benzodiazepines Scrn Positive A (Negative) Urine Cocaine Screen Negative (Negative) U Cannabinoids Screen Negative (Negative) Ethyl Alcohol < 10 (<10) mg/dL Imaging Data Radiologist's impression: ITS Impressions Chest X-Ray 12/11/24 17:19 IMPRESSION: No focal infiltrate or effusion. Discharge Plan Discharge Clinical Impression: Seizure Patient Disposition: Home Condition: Stable Instructions: Recurrent Seizures in Adults (ED) Additional Instructions: Continue to take her lacosamide, you are also being started on Depakote 250 mg twice a day. Follow-up with your neurologist. Return the ER if you are having recurrent frequent seizures, you have fever over 100.4° F, or you have additional concerns. Patient Language: Japanese Prescriptions: New divalproex [Depakote] 250 mg tablet,delayed release (DR/EC) 250 mg PO Q12H Qty: 30 1RF No Action phenytoin sodium extended 100 mg capsule 100 mg PO TID Qty: 90 0RF potassium chloride 20 mEq tablet extended release 20 meq PO BID 3 Days Qty: 6 0RF Follow-up/Referrals: [facility],SOY Mcgee [Primary Care Provider] - [place],Dheeraj Mistry M.D. [Non-Staff] - 1 Week
[2024-12-11] MEDS: DIVALPROEX SODIUM DR 250 MG TABEC PO (19:19)
== END 2024-12-11 19:24 | disposition home or self-care (01) ==
PROVIDERS: Emergency Provider Emergency Medicine; PCP Physician Assistant
DX: G40.909 Epilepsy, unspecified, not intractable, without status epilepticus (principal)
CPT/HCPCS: 36415; 71046; 80053; 80307; 81001; 82077; 82550; 85025; 99283; A9270